=== PATIENT | male | born 1950 | race Caucasian/White ===

== ENCOUNTER 2017-07-07 08:14 | Outpatient (CLI) | payer MEDICARE, BC ==
--- NOTE | 2017-07-07 09:44 | MRI ---
NONCONTRAST ENHANCED MRI OF THE LUMBAR SPINE: History: Low back pain. M54.5 Technique: Multiplanar, multisequence noncontrast enhanced MRI images of the lumbar spine obtained. FINDINGS: Cyst or cystic lesion seen in both kidneys. T12-L1: Unremarkable. L1-2: There is mild facet hypertrophy. No significant degree of central stenosis or neural foraminal narrowing is seen. L2-3: There is disc desiccation seen. There is a broad based disc bulge with bilateral facet hypertro phy. This results in mild but not significant degree of central stenosis. Moderate left L2-3 lateral recess stenosis is seen. Mild left neural foraminal narrowing is seen due to facet hypertrophy. L3-4: Disc desiccation is seen. 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 Bilateral facet and ligamentum fla vum hypertrophy is seen. There is a moderate degree of L3-4 central and lateral recess stenosis. Mild bilateral neural foraminal narrowing also seen. L4-5: Disc desiccation is seen. There is a broad based disc bulge with bilateral facet and ligamentum flavum hypertrophy. This results in moderate to severe central and lateral recess stenosis. There is mild to moderate bilateral neural foraminal narrowing due to the facet hypertrophy. Again, congeniti ally short pedicles seen at this level. L5-S1: Disc desiccation is seen. There is a broad based disc bulge with bilateral facet and ligamentu m flavum hypertrophy. This results in mild central and lateral recess stenosis. There is moderate rig ht and mild left sided neural foraminal narrowing. IMPRESSION: Multilevel congenitially short pedicles with broad based disc bulges and facet hypertrophy with centr al and lateral recess stenosis involving the L2-3, L3-4, L4-5 and L5-S1 levels. POS: [facility]
== END 2017-07-07 08:15 | disposition home or self-care (01) ==
LOC: TBSIIMAG 08:14
PROVIDERS: ATTEND Family Medicine
DX: M54.5 Low back pain (principal); M48.061 Spinal stenosis, lumbar region without neurogenic claudication; M51.86 Other intervertebral disc disorders, lumbar region
CPT/HCPCS: 72148

== ENCOUNTER 2017-12-15 02:08 | Emergency (ER) | payer MEDICARE, BC ==
[2017-12-15 02:48] LABS: #Eosinphils 0.4 thou/uL (0.0-0.7); #Lymphocytes 2.8 thou/uL (1.20-3.40); %Basophils 0.4 % (0.0-1.0); %Eosinophils 3.7 % (0.0-10.0); %Lymphocytes 27.2 % (21.0-51.0); %Monocytes 9.4 % (0.0-10.0); %Neutrophils 59.3 % (42.0-75.0); Hemoglobin 16.6 g/dL (14.0-18.0); Mean Corpuscular Hemoglobin 32.5 pg (27.0-31.0); Mean Corpuscular Volume 95.8 fl (80.0-94.0); Mean Platelet Volume 7.7 fL (7.4-10.4); Platelet Count 211 thou/uL (130-400); RBC Distribution Width 13.4 % (11.5-14.5); White Blood Cell (WBC) Count 10.1 thou/uL (4.8-10.8)
[2017-12-15] MEDS ORDERED: Aspirin 325 MG TAB ONE (03:05)
[2017-12-15 03:07] LABS: Bilirubin Negative (Negative); Blood, Urine Negative (Negative); Clarity CLEAR (Clear); Glucose, Urine (Dipstick) Negative (Negative); Leukocyte Negative (Negative); Nitrite Negative (Negative); Protein, Urine (Dipstick) Negative (Neg-Trace); Urobilinogen 0.2 mg/dL (0.2-1.0)
[2017-12-15] MEDS ORDERED: Nitroglycerin 2% Ointment 1 INCH/1 GM Packet ONE (03:08)
[2017-12-15 03:12] LABS: ALT (SGPT) 31 U/L (8-55); AST (SGOT) 28 U/L (5-34); Albumin 4.1 g/dL (3.4-4.8); Alkaline Phosphatase 111 U/L (40-150); Anion Gap 16 mmol/L (10-20); BUN (Urea Nitrogen) 22 mg/dL (8.4-25.7); Bilirubin, Total 0.7 mg/dL (0.2-1.2); Calc. Creatinine Clearance 0 mL/min (70-130); Calcium 9.6 mg/dL (7.8-10.44); Carbon Dioxide 27 mmol/L (23-31); Chloride 102 mmol/L (98-107); Estimated GFR-MDRD 62; Globulin 3.5 g/dL (2.4-3.5); Glucose 125 mg/dL (80-115); Lipase 31 U/L (8-78); Potassium 4.8 mmol/L (3.5-5.1); Protein, Total 7.6 g/dL (5.8-8.1); Sodium 140 mmol/L (136-145)
[2017-12-15] MEDS ORDERED: Morphine 4 MG/ML VIAL ONE ×2 (03:15→03:21)
[2017-12-15 03:16] LABS: Troponin I 0.011 ng/mL (< 0.028)
[2017-12-15] MEDS ORDERED: Ketorolac Tromethamine 30 MG/ML VIAL ONE (04:54)
--- NOTE | 2017-12-15 10:25 | CT ---
PRELIMINARY REPORT/[facility]/EMERGENTY AFTER-HOURS PROCEDURE CT Angiography Chest With Intravenous Contrast CLINICAL HISTORY: 67 years old, male; Pain; Chest pain; Type not specified; Abdominal pain; Epigastric; Patient HX: 75 y/o m w/ significant cardiac history w/ cabg and stent placement presents for acute onset epigastric, dull, crampy abdominal pain that awoke him from sleep around 0130 this am. Reports pain is constant. Slightly better sitting up and worse laying flat. Not similar to prior mi's. Last bm 0800 y day am. Denies any diarrhea, nausea, vomiting, dysuria. No HX of diverticulitis. States pain rad iates midway down abdomen and into flanks b/l. Denies and cp/sob/andres/unilateral weakness/slurred speec h. TECHNIQUE: Axial computed tomographic angiography images of the chest with intravenous contrast using pulmonary embolism protocol. MIP reconstructed images were created and reviewed. COMPARISON: No relevant prior studies available. FINDINGS: Pulmonary arteries: No pulmonary embolism. Aorta: No acute findings. No thoracic aortic aneurysm. Lungs: Minimal subsegmental atelectasis . 4 mm right lower lobe nodule No mass. No consolidation. Pleural space: Unremarkable. No significant effusion. No pneumothorax. Heart: Post CABG Mild cardiomegaly. No significant pericardial effusion. No evidence of RV dysfunctio n. Bones/joints: No acute fracture. No dislocation. Degenerative changes in the spine Soft tissues: Unremarkable. Lymph nodes: Unremarkable. No enlarged lymph nodes. A small hiatal hernia is detected. IMPRESSION: No definite pulmonary embolism Incidental 4 mm right lower lobe nodule. Comparison with prior images would be helpful Small hiatal hernia CT Angiography Abdomen With Intravenous Contrast TECHNIQUE: Axial computed tomographic angiography images of the abdomen with intravenous contrast. MIP reconstru cted images were created and reviewed. COMPARISON: No relevant prior studies available. FINDINGS: Aorta: No acute findings. No abdominal aortic aneurysm. No dissection. Celiac trunk and mesenteric arteries: No acute findings. No occlusion or significant stenosis. Renal arteries: No acute findings. No occlusion or significant stenosis. Lung bases: Unremarkable. No mass. No consolidation. Liver: Question mild nodular contour No mass. Gallbladder and bile ducts: Question minimal irregularity to the wall/minimal surrounding inflammatio n versus artifact No calcified stones. No ductal dilation. Pancreas: Unremarkable. No ductal dilation. No mass. Spleen: Unremarkable. No splenomegaly. Adrenals: Unremarkable. No mass. Kidneys and ureters: Renal cysts noted No hydronephrosis. No solid mass. Stomach and bowel: No obstruction. No mucosal thickening. Intraperitoneal space: No significant fluid collection. No free air. Bones/joints: No acute fracture. No dislocation. Degenerative changes in the spine Soft tissues: Unremarkable. No mass. Lymph nodes: Unremarkable. No enlarged lymph nodes. IMPRESSION: No acute findings in the arteries of the abdomen. Question minimal pericholecystic inflammation versus artifact. Further evaluation as clinically indicated. No definite calcified gallstones Thank you for allowing us to participate in the care of your patient. Dictated and Authenticated by: Kalen Mcfarlane MD 12/15/2017 4:32 AM Central Time ([place] & [place]) FINAL REPORT: CT ANGIO CHEST AND ABDOMEN AORTIC DISSECTION PROTOCOL: Multiple axial tomograms were performed through the chest and abdomen with arterial phase enhancement . Multiplanar reconstruction and 3D post processing obtained. FINDINGS: No evidence of thoracic or abdominal aortic dissection. No aneurysm identified. No evidence of proxim al pulmonary embolus. Small 4-5 mm nodule in the right lung base as noted, described on preliminary report. I am in agreement with the preliminary report. Code QA/Code LN POS: [facility]
--- NOTE | 2017-12-15 10:37 | ULT ---
PRELIMINARY REPORT/[facility]/EMERGENTY AFTER-HOURS PROCEDURE US Abdomen limited right upper quadrant CLINICAL HISTORY: 67 years old, male; Pain; Abdominal pain; Epigastric TECHNIQUE: Real-time ultrasound of the abdomen (limited), right upper quadrant with image documentation. COMPARISON: No relevant prior studies available. FINDINGS: Liver: Echogenic and enlarged. No mass. No intrahepatic bile duct dilation. Gallbladder: Slight and small pericholecystic fluid. Borderline gallbladder wall thickening noted. No sonographic Calderon's sign elicited Common bile duct: No stones. No dilation. Pancreas: Not well visualized. Right kidney: Simple cyst in the midpole of the right kidney measuring up to 3.4 cm No stones. No samreen id mass. No hydronephrosis. IMPRESSION: Sludge in the gallbladder with borderline wall thickening and minimal pericholecystic fluid. Correlat e for cholecystitis Non-urgent findings as noted Thank you for allowing us to participate in the care of your patient. Dictated and Authenticated by: Kalen Mcfarlane MD 12/15/2017 5:37 AM Central Time ([place] & [place]) FINAL REPORT RIGHT UPPER QUADRANT ULTRASOUND: I agree with the preliminary report given by Dr. Kalen Mcfarlane_of [facility]. POS: [facility]
[2017-12-15] MEDS ORDERED: Iopamidol 370 76% 50 ML VIAL FS ONE (13:04)
[2017-12-15] MEDS ORDERED: ISOVUE-370 76%-LOCM 1 ML ONE (13:04)
--- NOTE | 2017-12-18 16:18 | EKG ---
Test Reason : Blood Pressure : / mmHG Vent. Rate : 078 BPM Atrial Rate : 078 BPM P-R Int : 180 ms QRS Dur : 092 ms QT Int : 376 ms P-R-T Axes : -12 046 054 degrees QTc Int : 428 ms Normal sinus rhythm Cannot rule out Anterior infarct , age undetermined Abnormal ECG Confirmed by RUT BARROW, RONI ([id number]), research editor PABLO LUO ([id number]) on 12/18/2017 4:17:51 PM Referred By: Confirmed By:RONI BETTENCOURT MD
== END 2017-12-15 06:50 | disposition home or self-care (01) ==
LOC: ERS 02:08
DX: K80.50 Calculus of bile duct without cholangitis or cholecystitis without obstruction (principal); E78.00 Pure hypercholesterolemia, unspecified; E11.9 Type 2 diabetes mellitus without complications; I11.0 Hypertensive heart disease with heart failure; I50.9 Heart failure, unspecified
CPT/HCPCS: 36415; 71275; 76705; 80053; 81003; 82553; 83690; 84484; 85025; 93005; 96374; 96375; J1885; J2270

== ENCOUNTER 2017-12-21 00:45 | Emergency (ER) | payer MEDICARE, BC ==
[2017-12-21 01:49] LABS: ALT (SGPT) 26 U/L (8-55); AST (SGOT) 19 U/L (5-34); Albumin 3.9 g/dL (3.4-4.8); Alkaline Phosphatase 114 U/L (40-150); Anion Gap 9 mmol/L (10-20); BUN (Urea Nitrogen) 24 mg/dL (8.4-25.7); Bilirubin, Total 0.7 mg/dL (0.2-1.2); Calc. Creatinine Clearance 0 mL/min (70-130); Calcium 9.1 mg/dL (7.8-10.44); Carbon Dioxide 33 mmol/L (23-31); Chloride 104 mmol/L (98-107); Estimated GFR-MDRD 66; Globulin 2.8 g/dL (2.4-3.5); Glucose 169 mg/dL (80-115); Lipase 52 U/L (8-78); Protein, Total 6.7 g/dL (5.8-8.1); Sodium 142 mmol/L (136-145)
[2017-12-21 01:52] LABS: #Basophils 0.1 thou/uL (0.0-0.2); #Eosinphils 0.4 thou/uL (0.0-0.7); #Lymphocytes 2.1 thou/uL (1.20-3.40); #Monocytes 0.7 thou/uL (0.11-0.59); #Neutrophils 4.9 thou/uL (1.40-6.50); %Basophils 1.1 % (0.0-1.0); %Eosinophils 4.4 % (0.0-10.0); %Lymphocytes 25.7 % (21.0-51.0); %Monocytes 8.9 % (0.0-10.0); %Neutrophils 59.9 % (42.0-75.0); Hemoglobin 15.3 g/dL (14.0-18.0); Mean Corpuscular HGB CONC 33.5 g/dL (32.0-36.0); Mean Corpuscular Hemoglobin 32.4 pg (27.0-31.0); Mean Corpuscular Volume 96.9 fl (80.0-94.0); Mean Platelet Volume 9.2 fL (7.4-10.4); PLT Morphology Comment Appears Decreased; Platelet Count 112 thou/uL (130-400); RBC Distribution Width 13.4 % (11.5-14.5); Red Blood Cell (RBC) Count 4.72 mill/uL (4.70-6.10); White Blood Cell (WBC) Count 8.2 thou/uL (4.8-10.8)
== END 2017-12-21 03:22 | disposition home or self-care (01) ==
LOC: ERS 00:45
DX: R10.13 Epigastric pain (principal); E78.00 Pure hypercholesterolemia, unspecified; E11.9 Type 2 diabetes mellitus without complications; I25.2 Old myocardial infarction; I11.0 Hypertensive heart disease with heart failure; I50.9 Heart failure, unspecified; Z79.899 Other long term (current) drug therapy; Z79.82 Long term (current) use of aspirin; Z79.84 Long term (current) use of oral hypoglycemic drugs
CPT/HCPCS: 36415; 80053; 83690; 85025; 93005

== ENCOUNTER 2017-12-29 11:59 | Outpatient (CLI) | payer MEDICARE, BC ==
--- NOTE | 2017-12-29 15:25 | NM ---
NUCLEAR MEDICINE HIDA SCAN WITH DRUG: Date: 12/29/17 HISTORY: R10.13, epigastric pain. COMPARISON: Gallbladder ultrasound dated 12/15/17. FINDINGS: Whole body imaging was obtained after the intravenous administration of 5 mCi technetium-99m mebrofen in. Subsequently, for calculation of ejection fraction, 8 oz of Ensure oral replacement was given. Adequate hepatic uptake of radiotracer. Gallbladder is seen quickly. Common bile duct is seen quickly . There is radiotracer throughout the proximal small bowel. Calculated ejection fraction is 75%. IMPRESSION: Normal nuclear medicine HIDA scan with ejection fraction. POS: [facility]
== END 2017-12-29 12:00 | disposition home or self-care (01) ==
LOC: NM 11:59
PROVIDERS: ATTEND Surgery
DX: R10.13 Epigastric pain (principal)
CPT/HCPCS: 78227; A9537; A9548

== ENCOUNTER 2018-03-01 09:02 | Outpatient (CLI) | payer MEDICARE, BC ==
[2018-03-01] MEDS ORDERED: ISOVUE-370 76%-LOCM 1 ML ONE (13:54)
== END 2018-03-01 09:03 | disposition home or self-care (01) ==
LOC: BICCT 09:02
PROVIDERS: ATTEND Internal Medicine Gastroenterology
DX: R10.11 Right upper quadrant pain (principal); K63.89 Other specified diseases of intestine; N28.1 Cyst of kidney, acquired; N20.0 Calculus of kidney; M48.061 Spinal stenosis, lumbar region without neurogenic claudication
CPT/HCPCS: 74177; 82565

== ENCOUNTER 2018-04-20 14:28 | Outpatient (CLI) | payer MEDICARE, BC | END 2018-04-20 14:29 | disposition home or self-care (01) | LOC: BICULT 14:28 | PROVIDERS: ATTEND Family Medicine | DX: N28.1 Cyst of kidney, acquired (principal) | CPT/HCPCS: 76770 ==

== ENCOUNTER 2018-06-02 03:05 | Inpatient (IN) | payer MEDICARE, BC ==
[2018-06-02] MEDS ORDERED: Nitroglycerin 0.4 MG TAB (25 Tab Bottle) ONE ×2 (03:22→04:45)
[2018-06-02 03:31] LABS: #Eosinphils 0.4 thou/uL (0.0-0.7); #Lymphocytes 2.7 thou/uL (1.20-3.40); #Monocytes 0.9 thou/uL (0.11-0.59); #Neutrophils 7.1 thou/uL (1.40-6.50); %Basophils 0.4 % (0.0-1.0); %Lymphocytes 23.9 % (21.0-51.0); %Monocytes 8.3 % (0.0-10.0); %Neutrophils 63.3 % (42.0-75.0); Hemoglobin 17.5 g/dL (14.0-18.0); Mean Corpuscular HGB CONC 33.1 g/dL (32.0-36.0); Mean Corpuscular Hemoglobin 32.3 pg (27.0-31.0); Mean Corpuscular Volume 97.6 fL (78.0-98.0); Mean Platelet Volume 8.5 fL (7.4-10.4); Platelet Count 218 thou/uL (130-400); RBC Distribution Width 13.3 % (11.5-14.5); Red Blood Cell (RBC) Count 5.42 mill/uL (4.70-6.10); White Blood Cell (WBC) Count 11.2 thou/uL (4.8-10.8)
[2018-06-02 03:43] LABS: ALT (SGPT) 39 U/L (8-55); AST (SGOT) 25 U/L (5-34); Albumin 4.4 g/dL (3.4-4.8); Alkaline Phosphatase 119 U/L (40-150); Anion Gap 12 mmol/L (10-20); BUN (Urea Nitrogen) 21 mg/dL (8.4-25.7); Bilirubin, Total 0.7 mg/dL (0.2-1.2); Calc. Creatinine Clearance 0 mL/min (70-130); Calcium 9.6 mg/dL (7.8-10.44); Carbon Dioxide 30 mmol/L (23-31); Chloride 103 mmol/L (98-107); Estimated GFR-MDRD 58; Globulin 3.4 g/dL (2.4-3.5); Glucose 143 mg/dL (80-115); Potassium 3.8 mmol/L (3.5-5.1); Protein, Total 7.8 g/dL (5.8-8.1); Sodium 141 mmol/L (136-145)
[2018-06-02] MEDS ORDERED: Enoxaparin Sodium 100 MG/ML SYRINGE ONE (03:47)
[2018-06-02] MEDS ORDERED: Nitroglycerin 2% Ointment 1 INCH/1 GM Packet ONE (03:47)
[2018-06-02 03:48] LABS: CKMB 1.7 ng/mL (0-6.6); Troponin I 0.068 ng/mL (< 0.028)
[2018-06-02] MEDS ORDERED: Enoxaparin Sodium 30 MG/0.3 ML SYRINGE ONE (03:50)
[2018-06-02] MEDS ORDERED: Senokot S 8.6-50 MG TAB PO PRN (04:18)
[2018-06-02] MEDS ORDERED: Acetaminophen 325 MG TAB PO PRN (04:18)
[2018-06-02] MEDS ORDERED: Bisacodyl 5 MG TAB PO PRN (04:18)
[2018-06-02] MEDS ORDERED: Dextrose 5% in Water 1,000 ML IV PRN (04:27)
[2018-06-02] MEDS ORDERED: HumaLOG 300 UNITS/3 ML VIAL SC PRN (04:27)
[2018-06-02] MEDS ORDERED: Dextrose 50% Abboject 50 ML SYRINGE SLOW IVP PRN (04:27)
[2018-06-02] MEDS ORDERED: Clopidogrel Bisulfate 300 MG TAB PO SCH (04:30)
[2018-06-02 04:46] LABS: Cardiac Risk 3.2 (Less than 4.5)
[2018-06-02 04:53] VITALS: BMI 38.4
--- NOTE | 2018-06-02 05:36 | HP ---
CHIEF COMPLAINT: Chest pain. HISTORIAN: Patient and . HISTORY OF PRESENT ILLNESS: This is a 67-year-old male with past medical history significant for hyp ertension, hyperlipidemia, diabetes mellitus type 2, [place] in the past, CHF, and CABG. Per patient, he was at home and sleeping when he woke up from his sleep with chest pain, which was localized substern ally and did not radiate to any part of his body. Patient stated that the chest pain was pressure-li ke symptoms on the pain scale of 5/10, very constant and was alleviated by aspirin and nitroglycerin. Patient states that the pain came on all of sudden and he thought that he was probably having some [place]. The patient states that in the past, he had epigastric pain which was beneath the diaphragm and during that time, patient states that he was diagnosed with gallbladder sludge. The patient was seen in the ED and was discharged at the time. Patient denies any fever, chills, dizziness, headaches, s hortness of breath, palpitations, abdominal pain, dysuria, hematuria, generalized weakness. REVIEW OF SYSTEMS: Positive for chest pain with associated nausea, otherwise as documented in the HP I. All other systems were reviewed and are negative. PAST MEDICAL HISTORY: Hypertension; hyperlipidemia; diabetes mellitus type 2; coronary artery diseas e, status post CABG; CHF. FAMILY HISTORY: Reviewed and noncontributory to this visit. PSYCHIATRIC HISTORY: No previous psychiatric history noted. SOCIAL HISTORY: The patient denies alcohol use. The patient denies any illicit drug use. The patie nt denies smoking history. ALLERGIES: No known drug allergies. CURRENT MEDICATIONS: The patient is on aspirin 325 mg; carvedilol 12.5 mg; Humalog 75/25, patient ta kes 39 units 2 times a day; Lasix 20 mg 2 times a day; Zetia 10 mg daily; atorvastatin 20 mg; Trulici ty 0.75 mg/0.5 mL; amlodipine 2.5 mg daily; allopurinol 300 mg daily; metformin 500 mg b.i.d.; Benica r 40 mg daily. PHYSICAL EXAMINATION: VITAL SIGNS: Blood pressure is 240/109, heart rate of 86, respiratory rate of 18, O2 sat of 99 on ro om air. GENERAL: The patient is sitting in bed, does not appear to be in any acute distress. The patient is able to speak without any difficulties. HEENT: Normocephalic, atraumatic. Pupils are equally round and reactive to light. Extraocular move ments are intact. No scleral icterus, no conjunctival pallor. NECK: No JVD. Trachea is midline. Full range of motion, supple. LUNGS: Clear to auscultation bilaterally. No wheezing, no rales, no rhonchi is appreciated. CARDIOVASCULAR: Positive S1, S2, regular rate and rhythm. No murmurs, no gallops, no rubs appreciat ed. ABDOMEN: Soft, nontender, nondistended. Positive bowel sounds in all quadrants. No masses, no corina toneal signs, no rigidity, no guarding. EXTREMITIES: Upper extremity: Patient has 5/5 upper extremity strength and 5/5 lower extremity stre ngth. The patient has good pulses bilaterally in upper and lower extremities. The patient did have 1+ pitting edema noted at the lower extremities bilaterally. NEUROLOGIC: Cranial nerves II through XII grossly intact. No neurologic deficit noted. SKIN: Warm, dry, and intact. PSYCHIATRIC: Normal affect, alert, and oriented x3. DIAGNOSTIC DATA: EKG showed normal sinus rhythm with a rate of [address] elevation in AVR and depre ssion in lead V3, V4, V5, concerning for posterior infarct; however, age is indeterminate. Chest x-r ay shows no active cardiopulmonary process. LABORATORY DATA: WBC is 11.2, hemoglobin is 17.5, hematocrit 52.9, platelets 218,000, RDW 13.3. Sod ium 141, potassium is 3.8, chloride is 103, carbon dioxide of 30, anion gap of 12, BUN is 21, creatin ine is 1.24, GFR of 58, glucose 143, calcium is 9.6, AST is 25, ALT is 39, alkaline phosphatase is 11 9, CK-MB is 1.7. Troponins x1 is 0.068. ASSESSMENT AND PLAN: This is a 67-year-old male with extensive cardiac history being admitted for: 1. Chest pain, likely due to posterior infarction. Patient do have some EKG abnormality, concerning for ST elevation in AVR. The patient's troponin is elevated at 0.068. At this point, we are going to diagnose the patient with NSTEMI and we are going to start patient on aspirin, Plavix, therapeutic Lovenox. Cardiology has been consulted. We will follow up Cardiology regarding their recommendatio ns. Echo has been ordered. The patient will benefit from possible cardiac catheterization. At this point, we have made the patient n.p.o., awaiting cardiology's evaluation. Patient can be able to ta ke his home medication with sips of water. We will continue to monitor the patient. 2. Hypertensive emergency. The patient's blood pressure is not currently controlled on medication. We will continue to monitor the patient's blood pressure closely. 3. Diabetes mellitus type 2. We will do an aggressive insulin sliding scale. We will monitor the p atient. Patient's insulin regimen can be started when patient is able to start on meals. 4. Hyperlipidemia. We will continue the patient on atorvastatin. 5. Gastrointestinal and deep venous thrombosis prophylaxis, we will do Pepcid and will do Lovenox.
[2018-06-02] MEDS: Sodium Chloride 0.9% 1,000 ML IV SCH ×2 (05:47→23:19)
[2018-06-02] MEDS ORDERED: Nitroglycerin 0.4 MG TAB (25 Tab Bottle) SL PRN (06:47)
[2018-06-02] MEDS: Nitroglycerin 2% Ointment 1 INCH/1 GM Packet TOP SCH ×3 (06:51→23:05)
--- NOTE | 2018-06-02 08:04 | CON ---
DATE OF CONSULTATION: 06/02/2018 REASON FOR CONSULTATION: ICU management. HISTORY OF PRESENT ILLNESS: A 67-year-old male who presented last night with angina, episode was paulie und 3:30 a.m. It was not relieved until he had several sublingual nitroglycerin and some aspirin. H e is no longer having chest pain. He denies any arm tenderness, neck pain or numbness. He has a sig nificant heart history as outlined below. PAST MEDICAL HISTORY: 1. Coronary artery disease requiring two coronary artery bypass grafting surgeries. 2. Hypertension. 3. Hyperlipidemia. 4. Diabetes mellitus type 2. 5. Congestive heart failure. PAST SURGICAL HISTORY: Coronary artery bypass grafting surgery and also had shoulder surgery. FAMILY MEDICAL HISTORY: Unremarkable. SOCIAL HISTORY: Nonsmoker. Very occasionally consumes alcohol. 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 ALLERGIES: None. MEDICATIONS PRIOR TO ADMISSION: Aspirin 325 daily, carvedilol 12.5 mg twice daily, Humalog insulin 7 12/24 39 units twice daily, Lasix 20 mg 2 times daily, Zetia 10 mg daily, atorvastatin 20 mg daily, Tr ulicity 0.75 mg daily, amlodipine 2.5 mg daily, allopurinol 300 mg daily, metformin 500 mg b.i.d., Be nicar 40 mg daily. PHYSICAL EXAMINATION: VITAL SIGNS: Temperature 98.2, pulse 82, blood pressure 117/72, O2 sat 94% room air. GENERAL: No distress. HEENT: Unremarkable. NECK: No JVD, bruits. LUNGS: Clear without wheezing or rhonchi. CARDIAC: S1, S2 regular, no murmur. ABDOMEN: Soft, obese, nontender, nondistended. EXTREMITIES: No clubbing, cyanosis, or edema. LABORATORY DATA AND X-RAY FINDINGS: Significant findings included glucose 143. Troponin 0.068 with a repeated 0.260. Triglyceride level 249. White blood cell count 11.2, hematocrit 52.9, platelet co unt 218. Chest x-ray shows sternotomy wires, no mass, effusion or infiltrate. ASSESSMENT: 1. Angina. EKG at time of admission showed inferolateral ST segment depression, which is now resolv ed. 2. Diabetes mellitus. 3. History of hypertension. PLAN: 1. Cardiology consultation, Dr. Riley. 2. No acute pulmonary and Critical Care needs identified. I will be happy to follow the patient ron maza gatito who was in the ICU. He is currently on sliding scale insulin and n.p.o. in anticipation of pos sible cardiac catheterization.
[2018-06-02] MEDS: Clopidogrel Bisulfate 75 MG TAB PO SCH (08:45)
[2018-06-02] MEDS: Aspirin 325 MG TAB PO SCH (08:45)
--- NOTE | 2018-06-02 08:45 | RAD ---
AP VIEW CHEST: Date: 06/02/18 HISTORY: Chest pain. FINDINGS: Comparison made to previous exam from 12/08/13. AP view of chest demonstrates sternotomy wires seen. The lungs are well aerated. No evidence of acute intrathoracic abnormality seen. No evidence of effusions, pneumonia, or pneumothorax seen. IMPRESSION: Unremarkable AP view chest. POS: [facility]
[2018-06-02] MEDS: Carvedilol 6.25 MG TAB PO SCH ×2 (08:46→21:39)
[2018-06-02] MEDS: Amlodipine 5 MG TAB PO SCH (08:46)
[2018-06-02] MEDS: Famotidine/PF 20 mg/2ml Vial SLOW IVP SCH ×2 (08:47→21:40)
[2018-06-02] MEDS: Potassium Chloride 20 MEQ TAB PO SCH (08:48)
[2018-06-02] MEDS ORDERED: Ezetimibe 10 MG TAB PO SCH (09:00)
[2018-06-02] MEDS ORDERED: Atorvastatin Calcium 40 MG TAB PO SCH (09:00)
[2018-06-02] MEDS ORDERED: Metoprolol Tartrate 25 MG TAB PO SCH (09:00)
[2018-06-02 09:39] LABS: Troponin I 0.864 ng/mL (< 0.028)
[2018-06-02] MEDS: Enoxaparin Sodium 120 MG/0.8 ML SYRINGE SC SCH ×2 (10:05→21:39)
--- NOTE | 2018-06-02 10:31 | CON ---
DATE OF CONSULTATION: 06/02/2018 REASON FOR CONSULTATION: Non-ST elevation myocardial infarction. HISTORY OF PRESENT ILLNESS: Mr. Delvis Shepherd is a 67-year-old gentleman with history of coronary zandra ry disease with a non-ST elevation myocardial infarction. Mr. Shepherd was resting at home. He was awakened from sleep with retrosternal chest pain and pain anthony g across his chest. The initial EKG did show ST depression as will be outlined below. He received n itroglycerin and Lovenox and is now pain free. He was also very hypertensive at that time. Mr. Shepherd has a long history of coronary artery disease. He underwent coronary artery bypass graftin g initially in 1983. He had all vein grafts. In 07/2013 he had a stent placed in the proximal LAD vein graft. In 09/2013, he had unstable angina, found to have severe disease in all his vein grafts. He underwent repeat coronary bypass grafting. He had internal mammary placed to the LAD. He had a radial placed to the diagonal branch. He had a vein graft to the distal right coronary artery. As noted at the time of surgery had diffuse pericar dial adhesions. Unfortunately, the bypass to the obtuse marginal could not be done as he had no furt her conduit. It was a diffusely diseased vein graft which went to an artery that did have disease in it as well. MEDICATIONS: 1. Aspirin. 2. Atorvastatin. 3. Carvedilol. 4. Amlodipine. 5. Benicar. 6. Lasix. ALLERGIES: None. SOCIAL HISTORY: No alcohol or tobacco. REVIEW OF SYSTEMS: CONSTITUTIONAL: No significant weight gain or loss. VISION: No changes. HEARING: No changes. PULMONARY: No cough or wheezing. GASTROINTESTINAL: No nausea, vomiting, diarrhea. SKIN: No rashes. NEUROLOGIC: No unilateral weakness or numbness. PSYCHIATRIC: No unusual depression or anxiety. HEMATOLOGIC: No unusual bruising. GENITOURINARY: No burning with urination. PHYSICAL EXAMINATION: GENERAL: It is a pleasant 67-year-old gentleman in no distress. VITAL SIGNS: Blood pressure is currently 159/82, pulse 64 regular. LUNGS: Clear. CARDIAC: Normal S1, normal S2. ABDOMEN: Soft, nontender. EXTREMITIES: No clubbing or cyanosis. There is no edema. I did review the cardiac catheterization films. Based on this, it looks almost certainly like the cu lprit vessel would be the vein graft to the obtuse marginal. This graft is now at 24 years old. Th ere is also disease distally. It really does look unlikely that that could be successfully stented, although it is possible. We will try to optimize the patient's situation and try to continue Lovenox today. Certainly stentin g this area will carry high risk of embolization and also restenosis in vein grafts is very likely. It is a difficult situation. For now, we will try to optimize his medical therapy, go to the cath la b tomorrow. There will be increased risk of myocardial infarction, distal embolization's, stroke, he art attack regardless of therapy. We will try as mentioned to optimize his status first. Prognosis is guarded. If the graft actually is occluded and it is collateralized, that would actually be the p robably best finding or if collaterals are developing that would be really the best finding. We will try not to intervene in this graft. Any intervention will carry some very significant risk.
[2018-06-02] MEDS: HumaLOG 300 UNITS/3 ML VIAL SC PRN ×2 (12:43→23:06)
--- NOTE | 2018-06-02 15:35 | EKG ---
Test Reason : Blood Pressure : / mmHG Vent. Rate : 072 BPM Atrial Rate : 072 BPM P-R Int : 214 ms QRS Dur : 092 ms QT Int : 416 ms P-R-T Axes : 040 055 052 degrees QTc Int : 455 ms Sinus rhythm with 1st degree A-V block Otherwise normal ECG Confirmed by KAILASH JONES ([id number]) on 06/02/2018 3:34:02 PM Referred By: Marlee TOLBERT Confirmed By:KAILASH JONES
[2018-06-02] MEDS ORDERED: Zolpidem Tartrate 5 MG TAB PO PRN (16:08)
[2018-06-02] MEDS ORDERED: Melatonin 3 MG TAB PO PRN (16:08)
[2018-06-02] MEDS ORDERED: diphenhydrAMINE 25 MG CAP PO PRN (16:08)
[2018-06-02] MEDS: Labetalol HCl 100 MG/20 ML VIAL SLOW IVP PRN ×3 (19:22→23:17)
[2018-06-02] MEDS: Atorvastatin Calcium 40 MG TAB PO SCH (21:39)
[2018-06-02] MEDS: Ezetimibe 10 MG TAB PO SCH (21:40)
[2018-06-03] MEDS ORDERED: Diazepam 5 MG TAB PO SCH (05:00)
[2018-06-03 05:21] LABS: #Basophils 0.1 thou/uL (0.0-0.2); #Eosinphils 0.4 thou/uL (0.0-0.7); #Lymphocytes 1.9 thou/uL (1.20-3.40); #Neutrophils 8.3 thou/uL (1.40-6.50); %Basophils 0.4 % (0.0-1.0); %Eosinophils 3.4 % (0.0-10.0); %Lymphocytes 16.4 % (21.0-51.0); %Monocytes 8.3 % (0.0-10.0); %Neutrophils 71.5 % (42.0-75.0); Hemoglobin 15.6 g/dL (14.0-18.0); Mean Corpuscular HGB CONC 32.4 g/dL (32.0-36.0); Mean Corpuscular Hemoglobin 31.5 pg (27.0-31.0); Mean Platelet Volume 9.4 fL (7.4-10.4); Platelet Count 168 thou/uL (130-400); Red Blood Cell (RBC) Count 4.96 mill/uL (4.70-6.10); White Blood Cell (WBC) Count 11.6 thou/uL (4.8-10.8)
[2018-06-03 05:31] LABS: Anion Gap 12 mmol/L (10-20); BUN (Urea Nitrogen) 4 mg/dL (8.4-25.7); Calc. Creatinine Clearance 143 mL/min (70-130); Carbon Dioxide 23 mmol/L (23-31); Chloride 106 mmol/L (98-107); Estimated GFR-MDRD Greater than 90; Glucose 141 mg/dL (80-115); Magnesium 2.1 mg/dL (1.6-2.6); Potassium 4.1 mmol/L (3.5-5.1); Sodium 137 mmol/L (136-145)
[2018-06-03] MEDS ORDERED: Communication Order-Pharmacy FS SCH (06:00)
[2018-06-03] MEDS: Nitroglycerin 2% Ointment 1 INCH/1 GM Packet TOP SCH ×4 (06:25→23:56)
[2018-06-03] MEDS ORDERED: Lidocaine 1% (PF) 30 ML VIAL ONE (06:56)
[2018-06-03] MEDS: Carvedilol 6.25 MG TAB PO SCH ×2 (07:30→20:27)
[2018-06-03] MEDS: Aspirin 325 MG TAB PO SCH (07:30)
[2018-06-03] MEDS ORDERED: Midazolam HCl 2 mg/2 ml Vial ONE (08:26)
[2018-06-03] MEDS ORDERED: Fentanyl 100 MCG/2 ML VIAL ONE ×2 (08:26→09:53)
[2018-06-03] MEDS ORDERED: Nitroglycerin 2% Ointment 1 INCH/1 GM Packet ONE ×2 (08:41→15:42)
[2018-06-03] MEDS ORDERED: Nitroglycerin 4.9 GM Bottle ONE (08:48)
[2018-06-03] MEDS ORDERED: Nitroglycerin 100MG/250ML BOT 250 ML ONE (09:06)
--- NOTE | 2018-06-03 09:07 | PRG ---
DATE OF SERVICE: 06/02/2018. SUBJECTIVE: He is not having any chest pain or shortness of breath today. He is going down to the c ath lab for cardiac catheterization. PHYSICAL EXAMINATION: VITAL SIGNS: Temperature is 98.4, pulse 67, blood pressure 149/83, O2 sat 94%. HEENT: Unremarkable. NECK: No JVD. CHEST: Clear. CARDIAC: S1 and S2 regular. ABDOMEN: Soft. EXTREMITIES: No edema. LABORATORY DATA: Sodium 137, potassium 4.1, chloride 106, CO2 of 23, BUN 4, creatinine 0.8, glucose 141. White blood cell count 11.6, hematocrit 40.1, platelet count 168. ASSESSMENT: 1. Angina. 2. Non-Q-wave myocardial infarction. PLAN: The patient will undergo cardiac catheterization, no acute Pulmonary or Critical Care needs ar e identified. We will continue to follow with you while he is in the ICU.
[2018-06-03] MEDS ORDERED: Heparin 10,000 UNITS/1 ML VIAL ONE ×2 (09:10→10:21)
[2018-06-03] MEDS ORDERED: TICAGRELOR 90 MG TABLET ONE (10:15)
[2018-06-03] MEDS ORDERED: Milk Of Magnesia 30 ML UDCUP PO PRN (10:35)
[2018-06-03] MEDS ORDERED: Acetaminophen/Codeine 30-300mg Tablet PO PRN (10:35)
[2018-06-03] MEDS ORDERED: TICAGRELOR 90 MG TABLET PO SCH (10:45)
[2018-06-03] MEDS: Famotidine 20 MG TAB PO SCH ×2 (11:55→20:27)
[2018-06-03] MEDS: Amlodipine 5 MG TAB PO SCH (11:56)
[2018-06-03] MEDS: Potassium Chloride 20 MEQ TAB PO SCH (11:56)
[2018-06-03] MEDS: Clopidogrel Bisulfate 75 MG TAB PO SCH (11:56)
[2018-06-03] MEDS ORDERED: Iopamidol 370 76% 50 ML VIAL FS ONE (13:29)
[2018-06-03] MEDS ORDERED: Iopamidol 370 76% 100 ML VIAL ONE (13:29)
[2018-06-03] MEDS ORDERED: Fluticasone Propionate Nasal Spray 16 gm Bottle NASAL SCH (14:00)
[2018-06-03] MEDS ORDERED: Losartan 25 MG TAB PO SCH (14:30)
[2018-06-03] MEDS: Sodium Chloride 0.9% 1,000 ML IV SCH (15:45)
[2018-06-03] MEDS ORDERED: Nitroglycerin 0.4 MG TAB (25 Tab Bottle) SL PRN (16:08)
[2018-06-03] MEDS ORDERED: Fentanyl 100 MCG/2 ML VIAL SLOW IVP SCH (16:15)
[2018-06-03] MEDS ORDERED: Amlodipine 5 MG TAB PO SCH (16:15)
[2018-06-03] MEDS ORDERED: cloNIDine 0.1 MG TAB PO PRN (17:23)
[2018-06-03] MEDS ORDERED: Furosemide 20 MG/2 ML VIAL SLOW IVP SCH (17:30)
[2018-06-03] MEDS ORDERED: Nitroglycerin 0.4 MG TAB (25 Tab Bottle) SL SCH (17:30)
[2018-06-03] MEDS: Ezetimibe 10 MG TAB PO SCH (20:27)
[2018-06-03] MEDS: TICAGRELOR 90 MG TABLET PO SCH (20:27)
[2018-06-03] MEDS: Atorvastatin Calcium 40 MG TAB PO SCH (20:27)
--- NOTE | 2018-06-03 23:01 | PDOC.PN ---
- Subjective Encounter Start Date: 06/03/18 Encounter Start Time: 11:30 Patient seen and examined for NSTEMI. s/p Cath. No CP. No new complaints. No overnight events - Objective Resuscitation Status: Resuscitation Status FULL:Full Resuscitation MAR Reviewed: Yes Vital Signs & Weight: Vital Signs (12 hours) Temp Pulse BP Pulse Ox 06/03/18 20:27 133/69 06/03/18 20:00 98.6 F 98 06/03/18 17:33 168/58 H 06/03/18 16:59 64 167/83 H 06/03/18 16:00 98.7 F 06/03/18 12:00 98.4 F 06/03/18 11:56 64 160/61 H Weight Weight 267 lb 10.259 oz Most Recent Monitor Data Heart Rate from ECG 62 NIBP 134/63 NIBP BP-Mean 86 Respiration from ECG 6 SpO2 92 I&O: 06/02/18 06/03/18 06/04/18 06:59 06:59 06:59 Intake Total 175 1971 120 Output Total 250 1875 2200 Balance -75 96 -2080 Result Diagrams: 06/03/18 04:26 06/03/18 04:26 Additional Labs: Accuchecks 06/03/18 06/03/18 06/02/18 20:36 11:55 22:56 POC Glucose 208 H 134 H 176 H EKG Reviewed by me: Yes (Tele SR) Phys Exam - Physical Examination Constitutional: NAD Respiratory: no wheezing, no rales Cardiovascular: RRR, no rub Gastrointestinal: soft, non-tender, positive bowel sounds Musculoskeletal: no edema Neurological: moves all 4 limbs Dx/Plan - Plan DVT proph w/SCDs 1. NSTEMI 2. CAD s/p CABG 3. HTN 4. HLD 5. Obesity BMI 38.4 6. DM2 7. Other issues pe rH&P PLAN: Cont ASA/Brilinta Cont Coreg/ARB/Statins Cont other meds as below AM labs Review of Systems - Review of Systems Respiratory: negative: Cough, Dry, Shortness of Breath, Hemoptysis, SOB with Excertion, Pleuritic Pain, Sputum, Wheezing Cardiovascular: negative: chest pain, palpitations, orthopnea, paroxysmal nocturnal dyspnea, edema, light headedness, other - Medications/Allergies Allergies/Adverse Reactions: Allergies Allergy/AdvReac Type Severity Reaction Status Date / Time No Known Drug Allergies Allergy Verified 06/02/18 15:35 No Known Food Allergies Allergy Verified 06/02/18 15:35 Medications: Current Medications Acetaminophen (Tylenol) 650 mg PO Q4H PRN PRN Reason: Headache/Fever/Mild Pain (1-3) Acetaminophen/Codeine Phosphate (Tylenol #3) 2 tab PO Q4H PRN PRN Reason: Moderate Pain (4-6) Amlodipine Besylate (Norvasc) 5 mg PO DAILY [facility] Last Admin: 06/03/18 11:56 Dose: 5 mg Aspirin (Aspirin) 81 mg PO DAILY [facility] Atorvastatin Calcium (Lipitor) 40 mg PO HS [facility] Last Admin: 06/03/18 20:27 Dose: 40 mg Bisacodyl (Dulcolax) 10 mg PO DAILYPRN PRN PRN Reason: Constipation Carvedilol (Coreg) 6.25 mg PO BID [facility] Last Admin: 06/03/18 20:27 Dose: 6.25 mg Clonidine (Catapres) 0.1 mg PO Q4H PRN PRN Reason: TO KEEP SBP <160 Last Admin: 06/03/18 17:33 Dose: 0.1 mg Dextrose/Water (Dextrose 50%) 25 gm SLOW IVP PRN PRN PRN Reason: Hypoglycemia Diphenhydramine HCl (Benadryl) 25 mg PO Q6H PRN PRN Reason: Itching & Insomnia Ezetimibe (Zetia) 10 mg PO HS [facility] Last Admin: 06/03/18 20:27 Dose: 10 mg Famotidine (Pepcid) 20 mg PO BID [facility] Last Admin: 06/03/18 20:27 Dose: 20 mg Fluticasone Propionate (Flonase Nasal Fisher) 0 gm NASAL Q24H [facility] Last Admin: 06/03/18 16:58 Dose: Not Given Furosemide (Lasix) 20 mg PO 0900,1400 [facility] Glucagon (Glucagon) 1 mg IM PRN PRN PRN Reason: Hypoglycemia Dextrose/Water (D5w) 1,000 mls @ 0 mls/hr IV .Q0M PRN PRN Reason: Hypoglycemia Insulin Human Lispro (Humalog) 0 units SC .AGGRESSIVE SLIDING PRN PRN Reason: Aggressive Correctional Scale Last Admin: 06/02/18 23:06 Dose: 3 unit Insulin Human Lispro (Humalog) 0 units SC .BEDTIME SLIDING SC PRN PRN Reason: Bedtime Correctional Scale Last Admin: 06/03/18 20:47 Dose: 2 units Labetalol HCl (Normodyne) 10 mg SLOW IVP Q1H PRN PRN Reason: SBP>170 Last Admin: 06/02/18 23:17 Dose: 10 mg Magnesium Hydroxide (Milk Of Magnesium) 30 ml PO Q12H PRN PRN Reason: Constipation Melatonin (Melatonin) 3 mg PO HS PRN PRN Reason: Insomnia Last Admin: 06/02/18 23:15 Dose: 3 mg Nitroglycerin (Nitro-Bid 2% Ointment) 1 inch TOP Q6HR [facility] Last Admin: 06/03/18 17:38 Dose: Not Given Nitroglycerin (Nitrostat) 0.4 mg SL Q5MIN PRN PRN Reason: Chest Pain Last Admin: 06/03/18 15:35 Dose: 0.4 mg Olmesartan (Benicar) 40 mg PO DAILY [facility] Potassium Chloride (K-Dur) 20 meq PO DAILY [facility] Last Admin: 06/03/18 11:56 Dose: 20 meq Senna/Docusate Sodium (Senokot S) 2 tab PO BIDPRN PRN PRN Reason: Constipation Sodium Chloride (Flush - Normal Saline) 10 ml IVF Q12HR [facility] Last Admin: 06/03/18 20:27 Dose: 10 ml Sodium Chloride (Flush - Normal Saline) 10 ml IVF PRN PRN PRN Reason: Saline Flush Ticagrelor (Brilinta) 90 mg PO BID [facility] Last Admin: 06/03/18 20:27 Dose: 90 mg Zolpidem Tartrate (Ambien) 5 mg PO HSPRN PRN PRN Reason: Insomnia Last Admin: 06/02/18 23:05 Dose: 5 mg
[2018-06-04 04:09] LABS: #Eosinphils 0.4 thou/uL (0.0-0.7); #Lymphocytes 1.4 thou/uL (1.20-3.40); #Neutrophils 7.6 thou/uL (1.40-6.50); %Basophils 0.4 % (0.0-1.0); %Eosinophils 3.5 % (0.0-10.0); %Lymphocytes 13.5 % (21.0-51.0); %Monocytes 9.6 % (0.0-10.0); Hemoglobin 15.7 g/dL (14.0-18.0); Mean Corpuscular HGB CONC 32.5 g/dL (32.0-36.0); Mean Corpuscular Hemoglobin 31.8 pg (27.0-31.0); Mean Platelet Volume 8.6 fL (7.4-10.4); Platelet Count 178 thou/uL (130-400); RBC Distribution Width 13.1 % (11.5-14.5); Red Blood Cell (RBC) Count 4.93 mill/uL (4.70-6.10); White Blood Cell (WBC) Count 10.4 thou/uL (4.8-10.8)
[2018-06-04 04:34] LABS: ALT (SGPT) 30 U/L (8-55); AST (SGOT) 47 U/L (5-34); Albumin 3.6 g/dL (3.4-4.8); Alkaline Phosphatase 94 U/L (40-150); Anion Gap 12 mmol/L (10-20); BUN (Urea Nitrogen) 14 mg/dL (8.4-25.7); Bilirubin, Total 1.3 mg/dL (0.2-1.2); Calc. Creatinine Clearance 129 mL/min (70-130); Calcium 8.8 mg/dL (7.8-10.44); Carbon Dioxide 23 mmol/L (23-31); Chloride 105 mmol/L (98-107); Estimated GFR-MDRD 81; Globulin 2.9 g/dL (2.4-3.5); Glucose 153 mg/dL (80-115); Potassium 4.1 mmol/L (3.5-5.1); Protein, Total 6.5 g/dL (5.8-8.1); Sodium 136 mmol/L (136-145)
[2018-06-04] MEDS: Nitroglycerin 2% Ointment 1 INCH/1 GM Packet TOP SCH (05:38)
[2018-06-04] MEDS: HumaLOG 300 UNITS/3 ML VIAL SC PRN (05:38)
--- NOTE | 2018-06-04 07:51 | PDOC.CTH ---
Cardiology Progress Note - Subjective Pt doing very well. Feels much better. No CP. - Objective Vital Signs Temp BP Pulse Ox 06/04/18 04:00 98.2 F 06/04/18 00:00 98.2 F 06/03/18 20:27 133/69 06/03/18 20:00 98.6 F 98 Weight 123 lb 9.6 oz 06/03/18 06/04/18 06/05/18 06:59 06:59 05:59 Intake Total 1971 220 Output Total 1875 2600 Balance 96 -2380 - Physical Examination General/Neuro: alert & oriented x3, NAD Neck: carotid US brisk, no JVD present Lungs: CTA, unlabored respirations Heart: PMI normal, RRR Abdomen: NT/ND, soft Extremities: + femoral B - Labs Result Diagrams: 06/04/18 03:40 06/04/18 03:40 Troponin/CKMB CK-MB (CK-2) 1.7 ng/mL (0-6.6) 06/02/18 02:18 Troponin I 0.864 ng/mL (< 0.028) H* 06/02/18 08:40 - Assessment/Plan CAD s/p CAB G s/p stent to SVG to OMB (at [facility]) with BMS HTN obesity Severe CAD s/p Stent s/p CABG On BB, statin, brlinita, ARB Ok to dc with op fu
[2018-06-04] MEDS: Famotidine 20 MG TAB PO SCH (08:03)
[2018-06-04] MEDS: Carvedilol 6.25 MG TAB PO SCH (08:04)
[2018-06-04] MEDS: Amlodipine 5 MG TAB PO SCH (08:05)
[2018-06-04] MEDS: Potassium Chloride 20 MEQ TAB PO SCH (08:05)
[2018-06-04 08:10] VITALS: BP 147/84
[2018-06-04] MEDS ORDERED: Losartan 25 MG TAB PO SCH (09:00)
[2018-06-04] MEDS ORDERED: Furosemide 20 MG TAB PO SCH (09:00)
[2018-06-04] MEDS ORDERED: Aspirin 325 MG TAB PO SCH (09:00)
[2018-06-04] MEDS: TICAGRELOR 90 MG TABLET PO SCH (09:38)
[2018-06-04 09:59] VITALS: TEMP 98.1
--- NOTE | 2018-06-04 11:04 | DIS ---
DATE OF ADMISSION: 06/02/2018 DATE OF DISCHARGE: 06/04/2018 PRIMARY CARE PHYSICIAN: Dr. Herman Monzon. DISCHARGE DISPOSITION: Home. PRIMARY DISCHARGE DIAGNOSES: 1. Non-ST elevation myocardial infarction. 2. Status post cardiac catheterization with a bare metal stent placed in the obtuse marginal graft. SECONDARY DISCHARGE DIAGNOSES: Coronary artery disease with a coronary artery bypass graft, diabetes type 2, dyslipidemia, hypertension, obesity. PRIMARY PROCEDURE AND OPERATION: Cardiac catheterization with stent placement by Dr. Riley. RADIOLOGICAL INVESTIGATION: Chest x-ray normal. Echocardiography showed normal EF. SIGNIFICANT LABORATORY DATA: WBC 10.4, hemoglobin 15.7, and platelet 178. Sodium 136, potassium 4.1 , BUN 14, creatinine 0.93, calcium 8.8, AST 47, ALT 30, alkaline phosphatase 94, albumin 3.6. DISCHARGE MEDICATIONS: Aspirin 81 mg p.o. daily, Brilinta 90 mg p.o. b.i.d., Lasix 20 mg p.o. b.i.d. , Lipitor 40 mg p.o. at bedtime, amlodipine 5 mg p.o. daily, Benicar 40 mg p.o. daily, multivitamin 1 tablet p.o. daily, metformin 1000 mg p.o. b.i.d., insulin protamine with lispro 39 units subcu b.i.d ., fish oil 1 capsule daily, Zetia 10 mg p.o. daily, Trulicity 0.75 mg subcu every 7 days, vitamin D3 2000 unit p.o. daily, Coreg 12.5 mg p.o. b.i.d., allopurinol 300 mg p.o. daily. CONTRAINDICATIONS: None. CODE STATUS: FULL CODE. INPATIENT CONSULTANTS: Dr. Riley was consulted while in hospital. Pulmonary group was following be cause the patient admitted in ICU. TEST RESULTS PENDING ON DISCHARGE: None. ALLERGIES: No known drug allergy. DISCHARGE PLAN: Post hospital, the patient will follow up with Dr. Riley as instructed and primary care physician in 1 week. HOSPITAL COURSE: A 67-year-old male with above-mentioned medical problem who was admitted by Dr. Isidro and on 06/02/2018. Please see his H&P for further detail. The patient was admitted for chest pain. He had elevated troponin. He had EKG, which was nonspecific without any ST elevation. The patient was admitted in ICU for a non-ST elevation NC. Cardiology was consulted. Cardiology did cardiac cat heterization. The patient has [place] coronary artery disease with bypass grafting and the patient re quired a bare metal stent in one bypass graft at obtuse marginal. Post-procedure, the patient was ob served in CCU for 24 hours. The patient was doing very well. He was completely asymptomatic and fee ling more energetic after procedure. During this admission, Cardiology recommended Brilinta therapy and that is why aspirin dose reduced t o 81 mg, Lipitor dose increased to 40 mg p.o. daily, amlodipine dose increased to 5 mg p.o. daily. R est of medication was continued as per previous. The patient has all other medication at home. New medication prescription sent to his pharmacy. The patient is seen and examined at bedside today. All review of system reviewed with him and negati ve. Cardiology cleared him for discharge today. PHYSICAL EXAMINATION: VITAL SIGNS: Currently, temperature 98.1, pulse 67, respiratory rate 18, blood pressure 147/84, weig ht 123 pounds. GENERAL: The patient is currently alert, awake, no obvious acute distress. HEAD: Normocephalic, atraumatic. EYES: Pupils round, reactive to light. Extraocular muscle intact. ENT: Oropharynx within normal limits. Moist mucous membranes. No oral lesion, no pharyngeal erythe ma, no exudate. NECK: Supple, no JVD, no thyromegaly, no carotid bruit. LUNGS: Clear to auscultation without any rhonchi or rales. CARDIAC: S1, S2 regular without any murmur. ABDOMEN: Soft and benign without any tenderness. EXTREMITIES: No edema. NEUROLOGIC: Nonfocal examination. Overall, the patient is medically stable for discharge today.
--- NOTE | 2018-06-06 11:50 | EKG ---
Test Reason : POST STENT Blood Pressure : / mmHG Vent. Rate : 066 BPM Atrial Rate : 066 BPM P-R Int : 232 ms QRS Dur : 094 ms QT Int : 462 ms P-R-T Axes : 015 055 051 degrees QTc Int : 484 ms Sinus rhythm with 1st degree A-V block Nonspecific ST abnormality Prolonged QT Abnormal ECG Confirmed by KAILASH JONES ([id number]) on 06/06/2018 11:50:21 AM Referred By: CHRIS Confirmed By:KAILASH JONES
--- NOTE | 2018-06-06 11:56 | EKG ---
Test Reason : TIMED Blood Pressure : / mmHG Vent. Rate : 065 BPM Atrial Rate : 065 BPM P-R Int : 212 ms QRS Dur : 090 ms QT Int : 440 ms P-R-T Axes : 041 044 062 degrees QTc Int : 457 ms Sinus rhythm with 1st degree A-V block Possible Anterior infarct , age undetermined Abnormal ECG Confirmed by KAILASH JONES ([id number]) on 06/06/2018 11:55:42 AM Referred By: TOMASZ Confirmed By:KAILASH JONES
--- NOTE | 2018-06-13 16:11 | EKG ---
Test Reason : Blood Pressure : / mmHG Vent. Rate : 086 BPM Atrial Rate : 086 BPM P-R Int : 186 ms QRS Dur : 088 ms QT Int : 358 ms P-R-T Axes : 000 128 -82 degrees QTc Int : 428 ms Normal sinus rhythm Lateral infarct , possibly acute * ACUTE [place] * Abnormal ECG Confirmed by BEBETO WHITNEY ([id number]), electronic news gathering editor CAITLIN CHAVEZ ([id number]) on 06/13/2018 4:10:59 PM Referred By: Confirmed By:BEBETO WHITNEY
--- NOTE | 2018-06-13 16:12 | EKG ---
Test Reason : Blood Pressure : / mmHG Vent. Rate : 091 BPM Atrial Rate : 091 BPM P-R Int : 208 ms QRS Dur : 088 ms QT Int : 360 ms P-R-T Axes : 047 067 234 degrees QTc Int : 442 ms Normal sinus rhythm Marked ST abnormality, possible inferior subendocardial injury ST elevation aVR, ST depression V3-V67 Posterior infarct Abnormal ECG Confirmed by BEBETO WHITNEY ([id number]), deputy editor in chief CAITLIN CHAVEZ ([id number]) on 06/13/2018 4:12:36 PM Referred By: Confirmed By:BEBETO WHITNEY
--- NOTE | 2018-06-13 16:13 | EKG ---
Test Reason : Blood Pressure : / mmHG Vent. Rate : 081 BPM Atrial Rate : 080 BPM P-R Int : 000 ms QRS Dur : 080 ms QT Int : 376 ms P-R-T Axes : 000 047 032 degrees QTc Int : 436 ms Normal sinus rhythm with 1st degree A-V block Improved ST changes Nonspecific ST and T wave abnormality Abnormal ECG Confirmed by BEBETO WHITNEY ([id number]), graphics editor CAITLIN CHAVEZ ([id number]) on 06/13/2018 4:13:19 PM Referred By: Confirmed By:BEBETO WHITNEY
== END 2018-06-04 11:00 | disposition home or self-care (01) | DRG 249 ==
LOC: ERS 03:05 → CCU 03:50
PROVIDERS: ADMIT Internal Medicine; ATTEND Internal Medicine
PROC: 02703DZ Dilation of Coronary Artery, One Artery with Intraluminal Device, Percutaneous Approach (ICD-10-PCS; principal; 2018-06-03)
PROC: 4A023N7 Measurement of Cardiac Sampling and Pressure, Left Heart, Percutaneous Approach (ICD-10-PCS; 2018-06-03)
PROC: B2111ZZ Fluoroscopy of Multiple Coronary Arteries using Low Osmolar Contrast (ICD-10-PCS; 2018-06-03)
PROC: B2131ZZ Fluoroscopy of Multiple Coronary Artery Bypass Grafts using Low Osmolar Contrast (ICD-10-PCS; 2018-06-03)
DX: I21.4 Non-ST elevation (NSTEMI) myocardial infarction (principal); I25.810 Atherosclerosis of coronary artery bypass graft(s) without angina pectoris; I16.1 Hypertensive emergency; I50.30 Unspecified diastolic (congestive) heart failure; E11.9 Type 2 diabetes mellitus without complications; E78.5 Hyperlipidemia, unspecified; I25.2 Old myocardial infarction; I11.0 Hypertensive heart disease with heart failure; E66.9 Obesity, unspecified; Z68.38 Body mass index [BMI] 38.0-38.9, adult; Z79.82 Long term (current) use of aspirin; Z79.4 Long term (current) use of insulin
CPT/HCPCS: 36415; 36416; 71045; 76942; 80048; 80053; 80061; 82553; 83735; 84443; 84484; 85025; 85347; 92928; 93005; 93010; 93306; 93455; 93459; 94760; 96372; 99152; 99153; C1769; C1876; C1887; J1644; J1650; J1940; J2001; J2250; J3010; S0028

== ENCOUNTER 2018-07-14 15:30 | Emergency (ER) | payer MEDICARE, BC ==
[2018-07-14 16:22] LABS: #Eosinphils 0.3 thou/uL (0.0-0.7); #Lymphocytes 1.7 thou/uL (1.20-3.40); #Monocytes 0.8 thou/uL (0.11-0.59); #Neutrophils 6.2 thou/uL (1.40-6.50); %Basophils 0.3 % (0.0-1.0); %Eosinophils 3.2 % (0.0-10.0); %Monocytes 8.4 % (0.0-10.0); %Neutrophils 69.2 % (42.0-75.0); Mean Corpuscular HGB CONC 33.4 g/dL (32.0-36.0); Mean Corpuscular Hemoglobin 32.1 pg (27.0-31.0); Mean Corpuscular Volume 95.9 fL (78.0-98.0); Mean Platelet Volume 8.2 fL (7.4-10.4); Platelet Count 201 thou/uL (130-400); RBC Distribution Width 13.9 % (11.5-14.5); Red Blood Cell (RBC) Count 4.99 mill/uL (4.70-6.10); White Blood Cell (WBC) Count 8.9 thou/uL (4.8-10.8)
--- NOTE | 2018-07-14 16:45 | CT ---
CT ABDOMEN AND PELVIS NONCONTRAST: Date: 07/14/18 HISTORY: Right flank pain. FINDINGS: There is mild distention of the right renal collecting system and ureter to the level of a 0.3 cm katt culus along the internal margin of the right ureterovesical junction. The left renal collecting syste m and ureter are compressed with two tiny calcific densities and nondilated calices on the coronal re formatted images. Lack of contrast limits evaluation for other abnormalities. Cysts arise from the cortex of the kidney s. There is calcification in the arterial structures. Prominent degenerative changes of lumbar spine. IMPRESSION: 1. Partial obstruction at a 3 mm right ureterovesical junction calculus. 2. Tiny nonobstructing left renal calculi. 3. Atherosclerosis. POS: HÉCTOR
[2018-07-14] MEDS ORDERED: Ketorolac Tromethamine 30 MG/ML VIAL ONE (16:56)
[2018-07-14 17:11] LABS: ALT (SGPT) 26 U/L (8-55); AST (SGOT) 21 U/L (5-34); Albumin 4.1 g/dL (3.4-4.8); Alkaline Phosphatase 99 U/L (40-150); Anion Gap 15 mmol/L (10-20); BUN (Urea Nitrogen) 18 mg/dL (8.4-25.7); Bilirubin, Total 0.8 mg/dL (0.2-1.2); Calc. Creatinine Clearance 0 mL/min (70-130); Calcium 9.9 mg/dL (7.8-10.44); Carbon Dioxide 24 mmol/L (23-31); Chloride 105 mmol/L (98-107); Estimated GFR-MDRD 44; Globulin 3.3 g/dL (2.4-3.5); Glucose 131 mg/dL (80-115); Potassium 3.7 mmol/L (3.5-5.1); Protein, Total 7.4 g/dL (5.8-8.1); Sodium 140 mmol/L (136-145)
[2018-07-14 17:58] LABS: Bilirubin Negative (Negative); Blood, Urine Moderate (Negative); Clarity CLEAR (Clear); Glucose, Urine (Dipstick) Negative (Negative); Leukocyte Negative (Negative); Nitrite Negative (Negative); Protein, Urine (Dipstick) Negative (Neg-Trace); Specific Gravity, Urine 1.014 (1.002-1.036); Urobilinogen 0.2 mg/dL (0.2-1.0); pH, Urine 5.5 (5.0-9.0)
[2018-07-14 18:00] LABS: Bacteria/HPF None Seen HPF (None Seen); Hyaline Casts/LPF 0-3 HYALINE CAST LPF (0-3 Hyaline); Pathc Cast-AUWi Flag 0.14 (0-2.49); Squamous Epithelial None Seen HPF (0-3); WBC/HPF None Seen HPF (0-3)
== END 2018-07-14 19:05 | disposition home or self-care (01) ==
LOC: ERS 15:30
DX: N20.2 Calculus of kidney with calculus of ureter (principal); I25.2 Old myocardial infarction; I11.0 Hypertensive heart disease with heart failure; I50.9 Heart failure, unspecified; E78.00 Pure hypercholesterolemia, unspecified; E11.9 Type 2 diabetes mellitus without complications; Z79.82 Long term (current) use of aspirin; Z79.899 Other long term (current) drug therapy; Z79.4 Long term (current) use of insulin; Z79.891 Long term (current) use of opiate analgesic
CPT/HCPCS: 36415; 74176; 80053; 81003; 81015; 85025; 87086; 96360; J1885

== ENCOUNTER 2018-09-07 02:56 | Outpatient (CLI) | payer MEDICARE, BC ==
[2018-09-07 11:13] LABS: Hemoglobin 14.9 g/dL (14.0-18.0); Mean Corpuscular HGB CONC 32.8 g/dL (32.0-36.0); Mean Corpuscular Hemoglobin 32.2 pg (27.0-31.0); Mean Corpuscular Volume 98.2 fL (78.0-98.0); Mean Platelet Volume 8.6 fL (7.4-10.4); Platelet Count 194 thou/uL (130-400); RBC Distribution Width 14.1 % (11.5-14.5); Red Blood Cell (RBC) Count 4.64 mill/uL (4.70-6.10); White Blood Cell (WBC) Count 7.6 thou/uL (4.8-10.8)
[2018-09-07 11:19] LABS: INR-International Normal Ratio 1.1; PTT 35.5 SEC (22.9-36.1); Prothrombin Time 13.8 SEC (12.0-14.7)
[2018-09-07 11:34] LABS: Anion Gap 14 mmol/L (10-20); BUN (Urea Nitrogen) 17 mg/dL (8.4-25.7); Calc. Creatinine Clearance 0 mL/min (70-130); Carbon Dioxide 24 mmol/L (23-31); Chloride 106 mmol/L (98-107); Estimated GFR-MDRD 77; Glucose 109 mg/dL (80-115); Potassium 3.5 mmol/L (3.5-5.1); Sodium 140 mmol/L (136-145)
== END 2018-09-07 02:57 | disposition home or self-care (01) ==
LOC: LABBT 02:56
PROVIDERS: ATTEND Surgery
DX: Z01.812 Encounter for preprocedural laboratory examination (principal); M54.16 Radiculopathy, lumbar region; M48.061 Spinal stenosis, lumbar region without neurogenic claudication
CPT/HCPCS: 80048; 85027; 85610; 85730

== ENCOUNTER → 2018-09-13 | Day surgery (SDC) | payer MEDICARE, BC ==
[2018-09-07 09:37] VITALS: BMI 39.0
[~2018-09-13] MED LIST: Acetaminophen 325 MG TAB PO PRN; Albumin 5% 500 ML ONE; Bacitracin Zinc Ointment 30 gm TUBE ONE; Bisacodyl 10 MG SUPP PR PRN; CEFAZOLIN 2 GM/50 ML BAG IVPB SCH; CEFAZOLIN 2 GM/50 ML BAG ONE; Dulaglutide [Trulicity] 0.75 MG SC SCH; Fentanyl 100 MCG/2 ML VIAL ONE; Fleet Enema 133 ML BOT PR PRN; HYDROmorphone 2 MG/ML VIAL ONE; HYDROmorphone 2 MG/ML VIAL SLOW IVP PRN; Mag-Al 1200 mg/1200 mg/30 ML UDCUP PO PRN; Meperidine HCl/PF 25 MG/ML VIAL SLOW IVP PRN; Milk Of Magnesia 30 ML UDCUP PO PRN; Morphine 4 MG/ML VIAL SLOW IVP PRN; Morphine Sulfate 2 MG/ML SYRINGE SLOW IVP PRN; Nitroglycerin 0.4 MG TAB (25 Tab Bottle) SL SCH; Ondansetron HCl/PF 4 MG/2 ML Vial IVP PRN; PACU-Morphine 4MG/ML VIAL SLOW IVP PRN; Phenylephrine HCL 10 MG/ML VIAL ONE; Promethazine HCl 25 MG/ML VIAL IM PRN; Promethazine HCl 25 MG/ML VIAL SLOW IVP PRN; Sodium Chloride 0.9% 20 ML ONE; Thrombin 5000 UNITS/5 ML VIAL ONE; traMADol HCl 50 MG TAB PO PRN
[2018-09-13] MEDS: Sodium Chloride 0.9% 1,000 ML IV SCH (19:29)
[2018-09-13] MEDS: Ezetimibe 10 MG TAB PO SCH (21:00)
[2018-09-13] MEDS: Atorvastatin Calcium 20 MG TAB PO SCH (21:00)
[2018-09-13] MEDS: Carvedilol 6.25 MG TAB PO SCH (21:00)
[2018-09-13] MEDS: CEFAZOLIN 2 GM/50 ML BAG IVPB SCH (21:01)
[2018-09-13] MEDS: HumaLOG 300 UNITS/3 ML VIAL SC SCH (21:12)
[2018-09-13] MEDS: tiZANidine HCl 4 MG TAB PO PRN (21:24)
[2018-09-13] MEDS: HYDROcodone/Acetaminophen 7.5/325 mg Tablet PO PRN (21:24)
[2018-09-14] MEDS: Acetaminophen/Codeine 30-300mg Tablet PO PRN ×3 (01:29→14:59)
[2018-09-14] MEDS: Furosemide 20 MG TAB PO SCH ×2 (05:28→15:00)
[2018-09-14] MEDS: CEFAZOLIN 2 GM/50 ML BAG IVPB SCH (05:29)
[2018-09-14] MEDS: Sodium Chloride 0.9% 1,000 ML IV SCH ×2 (06:07→19:53)
[2018-09-14] MEDS: HYDROcodone/Acetaminophen 7.5/325 mg Tablet PO PRN ×3 (07:56→17:53)
[2018-09-14] MEDS: Amlodipine 5 MG TAB PO SCH (07:57)
[2018-09-14] MEDS: Carvedilol 6.25 MG TAB PO SCH ×2 (07:58→20:36)
[2018-09-14] MEDS: Allopurinol 300 MG TAB PO SCH (07:58)
[2018-09-14] MEDS: metFORMIN 500 MG TAB PO SCH ×2 (07:58→17:55)
--- NOTE | 2018-09-14 09:22 | PRG ---
DATE OF SERVICE: 09/14/2018 Mr. Shepherd is postoperative day 1 from multilevel lumbar laminectomies. He is doing well with improvement in his leg pain and is starting to mobilize. We will maximize pain control today. I think he needs another day in the hospital given the magnitude of his surgery. Job ID: [id number]
--- NOTE | 2018-09-14 10:17 | OP ---
DATE OF PROCEDURE: 09/13/2018 PREPROCEDURE DIAGNOSES: Multilevel lumbar stenosis with low back and leg pain, neurogenic claudication. POSTPROCEDURE DIAGNOSES: Multilevel lumbar stenosis with low back and leg pain, neurogenic claudication. STATION EXAMINER: Larry. PROCEDURES PERFORMED: L1-L2, L2-L3, L3-L4, and L4-L5 laminectomies; partial facetectomies; and foraminotomies. DESCRIPTION OF PROCEDURE: After informed consent was obtained from the patient, the patient was brought to the OR. Proper patient pause and identification were carried out. He was placed under excellent anesthesia, positioned prone on the OR table. All appropriate points were padded. We identified the L1-L5 dorsal spines. Linear kathryn was made over this region. This area was sterilely cleansed, prepared, and draped. Proper patient pause and identification were carried out. We then dissected and exposed the L1, L2, L3, L4, and L5 dorsal spines and lamina. Localization film confirmed our area of interest. We then performed L1, L2, L3, L4, and L5 laminectomies, partial facetectomy, and foraminotomies with excellent decompression of the common dural tube and the nerve roots. Hemostasis was maximized throughout. The wound was copiously irrigated and closed in anatomic layers following sprinkling of vancomycin powder. The patient then emerged from anesthesia. Job ID: [id number]
[2018-09-14] MEDS: HumuLIN 70/30 (300 UNITS/3 ML VIAL) SC SCH (12:37)
[2018-09-14] MEDS: tiZANidine HCl 4 MG TAB PO PRN (15:23)
[2018-09-14] MEDS: Ezetimibe 10 MG TAB PO SCH (20:36)
[2018-09-14] MEDS: Atorvastatin Calcium 20 MG TAB PO SCH (20:36)
[2018-09-14] MEDS: HumaLOG 300 UNITS/3 ML VIAL SC SCH (22:23)
[2018-09-15] MEDS: HYDROcodone/Acetaminophen 7.5/325 mg Tablet PO PRN ×3 (01:36→12:34)
[2018-09-15] MEDS: tiZANidine HCl 4 MG TAB PO PRN ×2 (01:36→11:39)
[2018-09-15] MEDS: Acetaminophen/Codeine 30-300mg Tablet PO PRN (04:10)
[2018-09-15] MEDS: Furosemide 20 MG TAB PO SCH ×2 (05:38→14:11)
[2018-09-15] MEDS: Allopurinol 300 MG TAB PO SCH (08:32)
[2018-09-15] MEDS: metFORMIN 500 MG TAB PO SCH (08:32)
[2018-09-15] MEDS: Amlodipine 5 MG TAB PO SCH (08:33)
[2018-09-15] MEDS: Carvedilol 6.25 MG TAB PO SCH (08:34)
[2018-09-15] MEDS: HumuLIN 70/30 (300 UNITS/3 ML VIAL) SC SCH (08:34)
[2018-09-15] MEDS: Gabapentin 100 MG CAP PO SCH ×2 (08:34→14:11)
[2018-09-15] MEDS: Sodium Chloride 0.9% 1,000 ML IV SCH (11:41)
[2018-09-15 15:48] VITALS: BP 128/61; TEMP 98.1
--- NOTE | 2018-09-15 16:08 | PRG ---
DATE OF SERVICE: 09/15/2018 This is a postoperative note. Mr. Shepherd is now postoperative day #2, having undergone multilevel lumbar laminectomy, complaining of significant incisional back pain with radiation into the bilateral lower extremities similarly to what he experienced preoperatively. He did walk some last night. He remains with good strength in the bilateral legs, however. He is requiring a walker for gait stability. I have asked the physical therapy to evaluate him today and I have added gabapentin to his medication regimen as we are unable to add Medrol Dosepak as he is diabetic. We will keep him again overnight for adequate pain control, and hopefully discharge tomorrow. Job ID: [id number]
== END ==
LOC: SDC 09:23 → SURG A 18:52
PROVIDERS: ATTEND Surgery
PROC: 01NB0ZZ Release Lumbar Nerve, Open Approach (ICD-10-PCS; principal; 2018-09-13)
DX: M48.062 Spinal stenosis, lumbar region with neurogenic claudication (principal); Z79.82 Long term (current) use of aspirin; Z79.4 Long term (current) use of insulin; Z79.899 Other long term (current) drug therapy
CPT/HCPCS: 36416; 76000; J0131; J1170; J1815; J2370; J3010; J3370; J3490; P9045

== ENCOUNTER 2019-08-29 10:31 | Outpatient (CLI) | payer MEDICARE, BC ==
--- NOTE | 2019-08-29 12:10 | CT ---
CT OF THE ABDOMEN AND PELVIS WITH AND WITHOUT IV CONTRAST INDICATION: Microhematuria and nephrolithiasis TECHNIQUE: Noncontrast CT of the abdomen and pelvis was performed. Postcontrast images were obtained in the nephrographic phase and delayed phase. Axial and coronal reformatted images were constructed from the raw data. COMPARISON: CT the abdomen and pelvis without contrast dated July 14, 2018 and a CTA of the chest and abdomen dated December 15, 2017. FINDINGS: ABDOMEN: Lung bases: There is a 4 mm pulmonary nodule in the right lower lobe that has been stable since the ay 2017 and CTA examination. No additional pulmonary nodule is evident. Liver: No focal lesion. Gallbladder: Normal appearing. Pancreas: Normal. Adrenal glands: Normal. Spleen: Normal. Kidneys and ureters: There are bilateral renal cysts. One of the largest in the right mid kidney luis eduardo ures 3.7 cm, mildly enlarged and the prior exam where it measured 3.5 cm. The largest within the left kidney is seen within the left peripelvic region on image 65 series 3 measuring 2.9 cm were prev ious in measured 2.67 m. No renal or ureteral calculus is demonstrated. No hydronephrosis is seen. No gross urothelial lesion is identified. Vasculature: There are moderate vascular calcifications seen involving the visualized vasculature. Lymph nodes:No lymphadenopathy. Free fluid in abdomen:No free fluid is evident. PELVIS: Small and large bowel: There are scattered colonic diverticula without evidence of active diverticuli tis. Appendix:Normal Bladder: Mild wall thickening without gross urothelial lesion Rectal and perirectal soft tissues:Normal. Reproductive structures: The prostate is mildly enlarged measuring 5.1 cm. This is relatively stable to the comparison exam. Free fluid in pelvis: No free fluid is evident. Lymphadenopathy pelvis: No lymphadenopathy is evident. Osseous structures: There is diffuse osteopenia. There is postsurgical change involving the lower lum bar spine. There is a small sclerotic lesion within the right lateral sixth rib that has been stable since November 2017 and may reflect a tiny low-grade chondroid lesion or possibly a small bone randy nd. There is scattered degenerative and osteoarthritic changes. Soft tissues:There is skin thickening involving the anterior abdominal wall which may reflect sequela of prior injections. IMPRESSION: 1. Bilateral renal cysts. The larger cysts within the right and left kidney have mildly enlarged and the comparison exam. No renal or ureteral calculus. No hydronephrosis demonstrated. No solid renal lesion or gross urothelial lesion identified. 2. Mild bladder wall thickening may reflect sequela of mild chronic bladder outlet obstruction. The p rostate remains mildly enlarged. 3. Stable right lower lobe 4 mm pulmonary nodule. 4. Colonic diverticulosis
[2019-08-29] MEDS ORDERED: Iopamidol-370 76% 500 ML 1 ML ONE (13:56)
== END 2019-08-29 10:32 | disposition home or self-care (01) ==
LOC: BICCT 10:31
PROVIDERS: ATTEND Urology
DX: N20.0 Calculus of kidney (principal); R31.29 Other microscopic hematuria; N28.1 Cyst of kidney, acquired; K57.30 Diverticulosis of large intestine without perforation or abscess without bleeding; R91.1 Solitary pulmonary nodule; N40.0 Benign prostatic hyperplasia without lower urinary tract symptoms; N32.89 Other specified disorders of bladder
CPT/HCPCS: 36415; 74178; 80053; 80061; 82306; 83036; 84550; G0103; Q9967

== ENCOUNTER 2021-07-29 09:04 | Outpatient (CLI) | payer MEDICARE, BC | END 2021-07-29 09:05 | disposition home or self-care (01) | LOC: TBSIIMAG 09:04 | PROVIDERS: ATTEND Surgery | DX: M47.26 Other spondylosis with radiculopathy, lumbar region (principal); Z98.890 Other specified postprocedural states | CPT/HCPCS: 72110; 72148 ==

== ENCOUNTER 2021-09-19 09:43 | Outpatient (CLI) | payer MEDICARE, BC ==
[2021-09-19 10:33] LABS: Bilirubin Neg (Negative); Blood, Urine Negative (Negative); Clarity Clear (Clear); Glucose, Urine (Dipstick) Normal (Negative); Ketone, Urine Negative (Negative); Leukocyte Negative (Negative); Nitrite Negative (Negative); Protein, Urine (Dipstick) 15 mg/dl (Neg-Trace); Urobilinogen Normal mg/dL (Less than 2)
[2021-09-19 11:00] LABS: Anion Gap 13 mmol/L (10-20); BUN (Urea Nitrogen) 15 mg/dL (8.4-25.7); Calc. Creatinine Clearance 0 mL/min (70-130); Calcium 8.6 mg/dL (7.8-10.44); Carbon Dioxide 32 mmol/L (23-31); Chloride 102 mmol/L (98-107); Glucose 145 mg/dL (83-110); Mean Corpuscular HGB CONC 33.3 g/dL (32.0-36.0); Mean Corpuscular Hemoglobin 33.1 pg (27.0-33.0); Mean Corpuscular Volume 99.6 fl (81.2-95.1); Mean Platelet Volume 10.7 fl (7.4-10.4); Platelet Count 182 10x3/uL (150-450); Potassium 3.7 mmol/L (3.5-5.1); RBC Distribution Width 13.2 % (11.5-14.5); Red Blood Cell (RBC) Count 4.53 10x6/uL (4.32-5.72); Sodium 143 mmol/L (136-145); White Blood Cell (WBC) Count 8.1 10x3/uL (3.5-10.5)
[2021-09-19 11:01] LABS: PTT 27.2 sec (22.0-33.0); Prothrombin Time 11.4 sec (9.5-12.1)
[2021-09-19 11:05] LABS: Bacteria/HPF None Seen HPF (None Seen); RBC/HPF 0-3 HPF (0-3); Squamous Epithelial None Seen HPF (0-3); WBC/HPF None Seen HPF (0-3)
[2021-09-19 18:26] LABS: SARS-CoV-2 PCR by NAA Not Detected (NotDetected)
== END 2021-09-19 09:44 | disposition home or self-care (01) ==
LOC: LABBT 09:43
PROVIDERS: ATTEND Urology
DX: Z01.818 Encounter for other preprocedural examination (principal); Z12.5 Encounter for screening for malignant neoplasm of prostate; N40.1 Benign prostatic hyperplasia with lower urinary tract symptoms; M48.062 Spinal stenosis, lumbar region with neurogenic claudication; I25.10 Atherosclerotic heart disease of native coronary artery without angina pectoris; N20.0 Calculus of kidney; R35.1 Nocturia; R31.29 Other microscopic hematuria; E11.9 Type 2 diabetes mellitus without complications; Z95.1 Presence of aortocoronary bypass graft; Z20.822 Contact with and (suspected) exposure to COVID-19
CPT/HCPCS: 80048; 81001; 85027; 85610; 85730; 87086; 93005; U0003; U0005; 93010

== ENCOUNTER 2021-09-24 06:21 | Day surgery (SDC) | payer MEDICARE, BC ==
[2021-09-22 12:20] VITALS: BMI 35.4
[2021-09-24] MEDS ORDERED: B & O ONE (09:26)
[2021-09-24] MEDS ORDERED: Meperidine HCl/PF 25 MG/ML VIAL ONE (09:29)
[2021-09-24] MEDS ORDERED: Levofloxacin 500 mg/D5W 100 ml Premix Bag ONE (09:33)
[2021-09-24] MEDS ORDERED: PROPOFOL 200 MG/20 ML VIAL ONE (09:45)
[2021-09-24] MEDS ORDERED: Phenazopyridine HCl 100 MG TAB ONE (10:31)
[2021-09-24] MEDS ORDERED: Oxybutynin 5 MG TAB ONE (10:31)
== END 2021-09-24 12:33 | disposition home or self-care (01) ==
LOC: SDC 06:21
PROVIDERS: ATTEND Urology
PROC: 0T7D8DZ Dilation of Urethra with Intraluminal Device, Via Natural or Artificial Opening Endoscopic (ICD-10-PCS; principal; 2021-09-24)
DX: N40.1 Benign prostatic hyperplasia with lower urinary tract symptoms (principal); N13.8 Other obstructive and reflux uropathy; N32.89 Other specified disorders of bladder; R39.11 Hesitancy of micturition; R35.0 Frequency of micturition; R35.1 Nocturia; I10 Essential (primary) hypertension; E78.5 Hyperlipidemia, unspecified; M19.90 Unspecified osteoarthritis, unspecified site; I25.10 Atherosclerotic heart disease of native coronary artery without angina pectoris; E11.9 Type 2 diabetes mellitus without complications; Z87.442 Personal history of urinary calculi; Z79.4 Long term (current) use of insulin; Z79.82 Long term (current) use of aspirin; Z79.84 Long term (current) use of oral hypoglycemic drugs; Z79.899 Other long term (current) drug therapy; Z95.1 Presence of aortocoronary bypass graft; Z95.5 Presence of coronary angioplasty implant and graft
CPT/HCPCS: 82962; C9740; 36416; J1956; J2175; J2704

== ENCOUNTER 2023-04-01 10:12 | Outpatient (CLI) | payer MEDICARE, BC ==
[2023-04-01 11:06] LABS: Hematocrit 42.4 % (38.8-50.0); Hemoglobin 14.1 g/dL (13.5-17.5); Mean Corpuscular HGB CONC 33.3 g/dL (32.0-36.0); Mean Corpuscular Hemoglobin 34.2 pg (27.0-33.0); Mean Corpuscular Volume 102.9 fl (81.2-95.1); Mean Platelet Volume 10.1 fl (7.4-10.4); Platelet Count 195 10x3/uL (150-450); RBC Distribution Width 14.4 % (11.5-14.5); Red Blood Cell (RBC) Count 4.12 10x6/uL (4.32-5.72); White Blood Cell (WBC) Count 6.9 10x3/uL (3.5-10.5)
[2023-04-01 11:30] LABS: PTT 27.7 sec (22.0-33.0); Prothrombin Time 11.1 sec (9.5-12.1)
[2023-04-01 11:37] LABS: Anion Gap 13 mmol/L (10-20); BUN (Urea Nitrogen) 28 mg/dL (8.4-25.7); Calc. Creatinine Clearance 0 mL/min (70-130); Calcium 9.3 mg/dL (7.8-10.44); Carbon Dioxide 29 mmol/L (23-31); Chloride 103 mmol/L (98-107); Estimated GFR 33; Glucose 114 mg/dL (83-110); Potassium 3.9 mmol/L (3.5-5.1); Sodium 141 mmol/L (136-145)
== END 2023-04-01 10:13 | disposition home or self-care (01) ==
LOC: LABBT 10:12
PROVIDERS: ATTEND Surgery
DX: Z01.812 Encounter for preprocedural laboratory examination (principal); M48.062 Spinal stenosis, lumbar region with neurogenic claudication; M54.16 Radiculopathy, lumbar region
CPT/HCPCS: 80048; 85027; 85610; 85730

== ENCOUNTER 2023-04-06 08:50 | Inpatient (IN) | payer MEDICARE, BC ==
[2023-04-01 10:37] VITALS: BMI 35.2
[2023-04-06] MEDS ORDERED: Thrombin 5000 UNITS/5 ML VIAL ONE (11:58)
[2023-04-06] MEDS ORDERED: Vancomycin 1 GM VIAL ONE (11:58)
[2023-04-06] MEDS ORDERED: CEFAZOLIN 2 GM VIAL ONE (12:08)
[2023-04-06] MEDS ORDERED: Sodium Chloride 0.9% 100 ML ONE (12:08)
[2023-04-06] MEDS ORDERED: fentaNYL 50 mcg/mL 1 mL Vial ONE ×4 (12:10→17:06)
[2023-04-06] MEDS ORDERED: Vasopressin 20 UNITS/ML VIAL ONE (12:17)
[2023-04-06] MEDS ORDERED: PHENYLEPHRINE-NS 100 MCG/ML 10 ML SYRINGE ONE (12:33)
[2023-04-06] MEDS ORDERED: PROPOFOL 200 MG/20 ML VIAL ONE (12:33)
[2023-04-06] MEDS ORDERED: Lidocaine 1% PF 5 ML VIAL ONE (12:33)
[2023-04-06] MEDS ORDERED: Vecuronium 10 MG VIAL ONE (12:33)
[2023-04-06] MEDS ORDERED: Rocuronium Bromide 10 MG/ML (10ML VIAL) ONE (12:33)
[2023-04-06] MEDS ORDERED: Calcium Chloride 1 GM/10 ML Abboject SYRINGE ONE (12:33)
[2023-04-06] MEDS ORDERED: Esmolol 100 MG/10 ML VIAL ONE (12:33)
[2023-04-06] MEDS ORDERED: ePHEDrine Sulfate 50 MG/10 ML VIAL ONE (12:33)
[2023-04-06] MEDS ORDERED: Phenylephrine 10 MG/ML VIAL ONE (12:40)
[2023-04-06] MEDS ORDERED: Ondansetron HCl/PF 4 MG/2 ML Vial IVP PRN (13:53)
[2023-04-06] MEDS ORDERED: Meperidine HCl/PF 25 MG/ML VIAL SLOW IVP PRN (13:53)
[2023-04-06] MEDS ORDERED: Promethazine HCl 25 MG/ML VIAL IM PRN (13:53)
[2023-04-06] MEDS ORDERED: HYDROmorphone 2 MG/ML VIAL SLOW IVP PRN (13:53)
[2023-04-06] MEDS ORDERED: SUGAMMADEX SODIUM 200 MG/2 ML VIAL ONE ×2 (14:33→16:01)
[2023-04-06] MEDS ORDERED: diphenhydrAMINE 25 MG CAP PO PRN (16:06)
[2023-04-06] MEDS ORDERED: Acetaminophen 325 MG TAB PO PRN (16:06)
[2023-04-06] MEDS ORDERED: traMADol HCl 50 MG TAB PO PRN (16:06)
[2023-04-06] MEDS ORDERED: Ondansetron PF 4 MG/2 ML Vial IVP PRN (16:06)
[2023-04-06] MEDS ORDERED: hydrALAZINE 20 MG/ML VIAL SLOW IVP PRN (16:08)
[2023-04-06] MEDS ORDERED: Mineral Oil ENEMA PR PRN (16:09)
[2023-04-06] MEDS ORDERED: Milk Of Magnesia 30 ML UDCUP PO PRN (16:09)
[2023-04-06] MEDS ORDERED: Bisacodyl 10 MG SUPP PR PRN (16:09)
[2023-04-06] MEDS ORDERED: HumaLOG 300 UNITS/3 ML VIAL SC PRN ×2 (16:12→16:45)
[2023-04-06] MEDS ORDERED: Glucagon 1 MG/ML KIT IM PRN (16:45)
[2023-04-06] MEDS ORDERED: Dextrose 5% in Water 1,000 ML IV PRN (16:45)
[2023-04-06] MEDS ORDERED: Dextrose 50% Abboject 50 ML SYRINGE IVP PRN (16:45)
[2023-04-06] MEDS: CEFAZOLIN 2 GM in Sodium Chloride 0.9% 100 ML IVPB SCH (21:32)
[2023-04-06] MEDS: Sodium Chloride 0.9% 1,000 ML IV SCH (21:32)
[2023-04-06] MEDS: Docusate 100 MG CAP PO SCH (21:33)
[2023-04-06] MEDS: Ezetimibe 10 MG TAB PO SCH (21:33)
[2023-04-06] MEDS: Furosemide 20 MG TAB PO SCH (21:33)
[2023-04-06] MEDS: Carvedilol 6.25 MG TAB PO SCH (21:33)
[2023-04-06] MEDS: Atorvastatin Calcium 20 MG TAB PO SCH (21:33)
[2023-04-06] MEDS: Ranolazine 500 MG ER.TAB PO SCH (21:35)
[2023-04-06] MEDS: HumuLIN 70/30 100 Unit/ ml 10 ml Vial SC SCH (21:35)
[2023-04-06] MEDS: hydrALAZINE 25 MG TAB PO SCH (21:35)
[2023-04-07] MEDS: HYDROcodone/Acetaminophen 7.5/325 mg Tablet PO PRN ×3 (03:42→15:09)
[2023-04-07] MEDS: CEFAZOLIN 2 GM in Sodium Chloride 0.9% 100 ML IVPB SCH (03:43)
[2023-04-07 05:30] LABS: #Eosinphils 0.1 thou/uL (0.0-0.7); #Neutrophils 6.6 thou/uL (1.40-6.50); %Basophils 0.5 % (0.0-1.0); %Eosinophils 0.6 % (0.0-10.0); %Lymphocytes 8.9 % (21.0-51.0); %Monocytes 11.9 % (0.0-10.0); %Neutrophils 77.9 % (42.0-75.0); Hematocrit 39.8 % (42.0-52.0); Hemoglobin 13.2 g/dL (14.0-18.0); Mean Corpuscular HGB CONC 33.2 g/dL (32.0-36.0); Mean Corpuscular Hemoglobin 34.9 pg (27.0-31.0); Mean Corpuscular Volume 105.3 fl (78.0-98.0); Mean Platelet Volume 10.9 fL (7.4-10.4); Platelet Count 131 10x3/uL (130-400); RBC Distribution Width 14.4 % (11.5-14.5); Red Blood Cell (RBC) Count 3.78 mill/uL (4.70-6.10); White Blood Cell (WBC) Count 8.5 10x3/uL (4.8-10.8)
[2023-04-07 05:36] LABS: Anion Gap 12 mmol/L (10-20); BUN (Urea Nitrogen) 21 mg/dL (8.4-25.7); Calc. Creatinine Clearance 57 mL/min (70-130); Calcium 8.9 mg/dL (7.8-10.44); Carbon Dioxide 24 mmol/L (23-31); Chloride 106 mmol/L (98-107); Estimated GFR 40; Glucose 141 mg/dL (83-110); Potassium 4.3 mmol/L (3.5-5.1); Sodium 138 mmol/L (136-145)
[2023-04-07] MEDS: Ferrous Sulfate 325 MG TAB PO SCH (08:55)
[2023-04-07] MEDS: Carvedilol 6.25 MG TAB PO SCH ×2 (08:56→20:32)
[2023-04-07] MEDS: Cholecalciferol 1,000 UNITS (25 MCG) TAB PO SCH (08:56)
[2023-04-07] MEDS: Losartan 25 MG TAB PO SCH (08:56)
[2023-04-07] MEDS: Allopurinol 300 MG TAB PO SCH (08:56)
[2023-04-07] MEDS: hydrALAZINE 25 MG TAB PO SCH ×2 (08:57→20:34)
[2023-04-07] MEDS: Multivit, Therapeutic 1 TAB PO SCH (08:57)
[2023-04-07] MEDS: Ranolazine 500 MG ER.TAB PO SCH ×2 (08:57→20:34)
[2023-04-07] MEDS: Isosorbide Mononitrate 30 MG ER.TAB PO SCH (08:58)
[2023-04-07] MEDS: Furosemide 20 MG TAB PO SCH ×2 (08:58→22:03)
[2023-04-07] MEDS: Docusate 100 MG CAP PO SCH ×2 (08:58→20:32)
[2023-04-07] MEDS: HumuLIN 70/30 100 Unit/ ml 10 ml Vial SC SCH ×2 (09:03→22:34)
[2023-04-07] MEDS: Morphine 2 MG/ML VIAL SLOW IVP PRN (11:01)
[2023-04-07] MEDS: Sodium Chloride 0.9% 1,000 ML IV SCH ×2 (11:05→20:31)
[2023-04-07] MEDS: tiZANidine HCl 4 MG TAB PO PRN (12:55)
[2023-04-07] MEDS: Atorvastatin Calcium 20 MG TAB PO SCH (20:32)
[2023-04-07] MEDS: Ezetimibe 10 MG TAB PO SCH (20:33)
[2023-04-08] MEDS: Acetaminophen/Codeine 30-300mg Tablet PO PRN ×3 (04:10→21:56)
[2023-04-08] MEDS: Morphine 2 MG/ML VIAL SLOW IVP PRN (07:09)
[2023-04-08] MEDS: Ranolazine 500 MG ER.TAB PO SCH ×2 (09:49→20:18)
[2023-04-08] MEDS: Carvedilol 6.25 MG TAB PO SCH ×2 (09:49→20:19)
[2023-04-08] MEDS: Ferrous Sulfate 325 MG TAB PO SCH (09:49)
[2023-04-08] MEDS: Multivit, Therapeutic 1 TAB PO SCH (09:49)
[2023-04-08] MEDS: Furosemide 20 MG TAB PO SCH ×2 (09:49→20:19)
[2023-04-08] MEDS: Isosorbide Mononitrate 30 MG ER.TAB PO SCH (09:49)
[2023-04-08] MEDS: Allopurinol 300 MG TAB PO SCH (09:50)
[2023-04-08] MEDS: Docusate 100 MG CAP PO SCH ×2 (09:50→20:18)
[2023-04-08] MEDS: Losartan 25 MG TAB PO SCH (09:50)
[2023-04-08] MEDS: hydrALAZINE 25 MG TAB PO SCH ×2 (09:50→20:20)
[2023-04-08] MEDS: Cholecalciferol 1,000 UNITS (25 MCG) TAB PO SCH (09:51)
[2023-04-08] MEDS: HumuLIN 70/30 100 Unit/ ml 10 ml Vial SC SCH ×2 (09:53→23:01)
[2023-04-08] MEDS: Sodium Chloride 0.9% 1,000 ML IV SCH ×2 (14:30→21:59)
[2023-04-08] MEDS: Ezetimibe 10 MG TAB PO SCH (20:19)
[2023-04-08] MEDS: Atorvastatin Calcium 20 MG TAB PO SCH (20:20)
[2023-04-09] MEDS: HYDROcodone/Acetaminophen 7.5/325 mg Tablet PO PRN ×2 (01:39→12:53)
[2023-04-09] MEDS: tiZANidine HCl 4 MG TAB PO PRN (06:34)
[2023-04-09 07:40] VITALS: TEMP 98.1
[2023-04-09] MEDS ORDERED: Cyclobenzaprine 10 MG TAB PO PRN (08:09)
[2023-04-09] MEDS: Docusate 100 MG CAP PO SCH (09:27)
[2023-04-09] MEDS: Ranolazine 500 MG ER.TAB PO SCH (09:27)
[2023-04-09] MEDS: Isosorbide Mononitrate 30 MG ER.TAB PO SCH (09:28)
[2023-04-09] MEDS: Cholecalciferol 1,000 UNITS (25 MCG) TAB PO SCH (09:28)
[2023-04-09] MEDS: Ferrous Sulfate 325 MG TAB PO SCH (09:28)
[2023-04-09] MEDS: Furosemide 20 MG TAB PO SCH (09:28)
[2023-04-09] MEDS: HumuLIN 70/30 100 Unit/ ml 10 ml Vial SC SCH (09:29)
[2023-04-09 09:37] LABS: #Eosinphils 0.1 thou/uL (0.0-0.7); #Monocytes 0.9 thou/uL (0.11-0.59); #Neutrophils 5.8 thou/uL (1.40-6.50); %Basophils 0.5 % (0.0-1.0); %Eosinophils 1.6 % (0.0-10.0); %Lymphocytes 12.8 % (21.0-51.0); %Monocytes 11.2 % (0.0-10.0); %Neutrophils 73.5 % (42.0-75.0); Hematocrit 34.1 % (42.0-52.0); Hemoglobin 11.3 g/dL (14.0-18.0); Mean Corpuscular HGB CONC 33.1 g/dL (32.0-36.0); Mean Corpuscular Hemoglobin 35.2 pg (27.0-31.0); Mean Corpuscular Volume 106.2 fl (78.0-98.0); Mean Platelet Volume 10.9 fL (7.4-10.4); Platelet Count 112 10x3/uL (130-400); RBC Distribution Width 13.9 % (11.5-14.5); Red Blood Cell (RBC) Count 3.21 mill/uL (4.70-6.10)
[2023-04-09 09:57] LABS: Anion Gap 11 mmol/L (10-20); BUN (Urea Nitrogen) 20 mg/dL (8.4-25.7); Calc. Creatinine Clearance 60 mL/min (70-130); Carbon Dioxide 27 mmol/L (23-31); Chloride 101 mmol/L (98-107); Estimated GFR 41; Glucose 158 mg/dL (83-110); Potassium 4.5 mmol/L (3.5-5.1); Sodium 134 mmol/L (136-145)
[2023-04-09] MEDS: Allopurinol 300 MG TAB PO SCH (10:08)
[2023-04-09] MEDS: Multivit, Therapeutic 1 TAB PO SCH (10:08)
[2023-04-09] MEDS: Losartan 25 MG TAB PO SCH (10:08)
[2023-04-09] MEDS: Carvedilol 6.25 MG TAB PO SCH (10:09)
[2023-04-09] MEDS: hydrALAZINE 25 MG TAB PO SCH (10:09)
[2023-04-09] MEDS: Sodium Chloride 0.9% 1,000 ML IV SCH (14:57)
[2023-04-09 15:31] VITALS: BP 105/57
== END 2023-04-09 16:47 | DRG 520 ==
LOC: SDC 08:50 → 2SW 16:11 → OBSVTOIN 04-07 09:19 → SURG A 04-07 18:13
PROVIDERS: ADMIT Surgery; ATTEND Surgery
PROC: 0SB20ZZ Excision of Lumbar Vertebral Disc, Open Approach (ICD-10-PCS; principal; 2023-04-07)
PROC: 01NB0ZZ Release Lumbar Nerve, Open Approach (ICD-10-PCS; 2023-04-07)
DX: M48.062 Spinal stenosis, lumbar region with neurogenic claudication (principal); M54.16 Radiculopathy, lumbar region; R44.1 Visual hallucinations; R40.0 Somnolence; T42.8X5A Adverse effect of antiparkinsonism drugs and other central muscle-tone depressants, initial encounter
CPT/HCPCS: 36415; 36416; 80048; 85025; 93970; 96374; 96376; A4314; G0378; J1642; J1815; J2272; J2370; J2704; J3010; J3370; J3490; J7050